=== PATIENT | male | born 1950 | race Caucasian/White ===

== ENCOUNTER 2023-10-05 17:13 | Inpatient (IN) | payer OTHER ==
[2023-10-05] MEDS ORDERED: SODIUM CHLORIDE 0.9% 500 ML INFUS.BAG IV ONE ×2 (17:24→17:47)
[2023-10-05] MEDS ORDERED: PIPERACILLIN/TAZOB 4.5 GM 4.5 GM in DEXTROSE 5%-WATER 100 ML IVPB ONE (17:24)
[2023-10-05] MEDS ORDERED: VANCOMYCIN 1 GRAM (PRE-DOCKED) 1,000 MG/250 ML BAG IVPB ONE ×2 (17:25→19:15)
[2023-10-05] MEDS ORDERED: ACETAMINOPHEN 1000 MG/100 ML BAG IVPB ONE (17:36)
[2023-10-05 18:28] LABS: BASO % 0.5 % (0-2.0); EOS % 0.3 % (0-4.5); HEMATOCRIT 36.7 % (35.4-49); HEMOGLOBIN 11.7 GM/dL (11.7-16.9); LYMPH % 2.2 % (8-40); MCH 31.5 pg (25.7-33.7); MEAN CELL VOLUME 98.4 fl (80-96); MONO % 8.2 % (3.8-10.2); NEUT % 88.8 % (42.8-82.8); PLATELET COUNT 545 10^3/uL (134-434); RBC 3.72 M/mm3 (4.00-5.60); WHITE BLOOD COUNT 11.6 K/mm3 (4.0-10.0)
[2023-10-05] MEDS ORDERED: PIPERACILLIN/TAZOB 4.5 GM 4.5 GM/100 ML BAG IVPB ONE (18:32)
[2023-10-05] MEDS ORDERED: ACETAMINOPHEN INJECTION 100 ML IVPB ONE (18:32)
[2023-10-05 18:36] LABS: INR 1.34 (0.83-1.09); PROTHROMBIN TIME (PATIENT) 15.5 SEC (9.7-13.0)
[2023-10-05 18:50] LABS: POTASSIUM 5.9 mmol/L (3.5-5.1)
[2023-10-05 18:52] LABS: BLOOD UREA NITROGEN 33.1 mg/dL (7-18); MAGNESIUM 2.1 mg/dL (1.8-2.4)
[2023-10-05 18:53] LABS: CALCIUM 8.4 mg/dL (8.5-10.1)
[2023-10-05 18:56] LABS: ACTIVATED PTT 25.8 SECONDS (25.2-36.5)
[2023-10-05 18:57] LABS: BILIRUBIN,TOTAL 0.3 mg/dL (0.2-1)
[2023-10-05 19:00] LABS: N-TERMINAL BNP 892.4 pg/ml (5-125)
[2023-10-05 19:01] LABS: VENOUS O2 SATURATION 51.9 % (70-80); VENOUS PCO2 38.8 mmHg (38-52); VENOUS PH 7.4 (7.310-7.410)
[2023-10-05] MEDS ORDERED: CALCIUM GLUCONATE 10% - 1,000 MG/10 ML VIAL IVPB ONE (19:03)
[2023-10-05] MEDS ORDERED: CALCIUM GLUCONATE 10% - 1,000 MG/10 ML VIAL ONE (20:14)
[2023-10-05 21:10] LABS: EPI CELLS 3 /uL (0-25.1); HYALINE CASTS 1 /uL (0-3.1); URINE APPEARANCE TURBID; URINE BACTERIA 3699 /uL (0-1359); URINE BILIRUBIN NEGATIVE (NEGATIVE); URINE COLOR YELLOW; URINE GLUCOSE (UA) NEGATIVE (NEGATIVE); URINE KETONE NEGATIVE (NEGATIVE); URINE LEUK ESTERASE 3+ (NEGATIVE); URINE NITRITE NEGATIVE (NEGATIVE); URINE PROTEIN 2+ (NEGATIVE); URINE UROBILINOGEN 0.2 mg/dL (0.2-1.0); URINE WBC 6583 /uL (0-25.8)
[2023-10-05 21:34] LABS: URINE RBC 104.2 /uL (0-23.9)
[2023-10-05] MEDS ORDERED: HEPARIN NA (PORCINE) 5,000 UNITS/ML 1ML VIAL SQ SCH (22:30)
[2023-10-05] MEDS ORDERED: HEPARIN NA (PORCINE) 5,000 UNITS/ML 1ML VIAL ONE (22:44)
[2023-10-05] MEDS ORDERED: ALPRAZolam 0.25 MG TABLET GT PRN (23:04)
[2023-10-05] MEDS ORDERED: SODIUM ZIRCONIUM CYCLOSILICATE (LOKELMA) 5 GM PACKET PO ONE (23:12)
[2023-10-05] MEDS ORDERED: SODIUM ZIRCONIUM CYCLOSILICATE (LOKELMA) 10 GM PACKET ONE (23:27)
[2023-10-06] MEDS ORDERED: PIPERACILLIN/TAZOB 3.375 GM 3.375 GM/50 ML BAG IVPB ONE ×2 (01:22→09:17)
[2023-10-06] MEDS: PIPERACILLIN/TAZOB 3.375 GM 3.375 GM in DEXTROSE 5%-WATER - 50 ML IVPB SCH ×3 (01:22→18:24)
[2023-10-06] MEDS ORDERED: PIPERACILLIN/TAZOB 3.375 GM 3.375 GM in DEXTROSE 5%-WATER - 50 ML IVPB SCH (02:00)
[2023-10-06 03:30] LABS: POTASSIUM 4.2 mmol/L (3.5-5.1)
[2023-10-06 03:31] LABS: BLOOD UREA NITROGEN 27.3 mg/dL (7-18); CALCIUM 8.2 mg/dL (8.5-10.1)
[2023-10-06 03:35] LABS: CREATININE 0.7 mg/dL (0.55-1.3)
[2023-10-06] MEDS ORDERED: ALBUTEROL SO4 2.5/IPRATROPIUM 0.5 INH SOL 3 ML VIAL.NEB. NEB ONE (08:51)
[2023-10-06] MEDS: ALBUTEROL SO4 2.5/IPRATROPIUM 0.5 INH SOL 3 ML VIAL.NEB. NEB SCH ×4 (08:52→20:45)
[2023-10-06 08:55] LABS: HEMOGLOBIN 9.8 GM/dL (11.7-16.9); MCH 31.9 pg (25.7-33.7); MCHC 32.7 g/dl (32.0-35.9); MEAN CELL VOLUME 97.8 fl (80-96); MEAN PLT VOLUME 8.7 fl (7.5-11.1); PLATELET COUNT 462 10^3/uL (134-434); RBC 3.07 M/mm3 (4.00-5.60); WHITE BLOOD COUNT 14.3 K/mm3 (4.0-10.0)
[2023-10-06] MEDS ORDERED: HEPARIN NA (PORCINE) 5,000 UNITS/ML 1ML VIAL ONE (08:55)
[2023-10-06 09:08] LABS: POTASSIUM 4.3 mmol/L (3.5-5.1)
[2023-10-06 09:14] LABS: BLOOD UREA NITROGEN 26.8 mg/dL (7-18); CALCIUM 8.2 mg/dL (8.5-10.1)
[2023-10-06 09:15] LABS: ALBUMIN 1.8 g/dl (3.4-5.0)
[2023-10-06] MEDS: ZINC SULFATE 220 MG CAPSULE (FP) GT SCH (09:15)
[2023-10-06] MEDS: CYANOCOBALAMIN 1,000 MCG TABLET (FP) GT SCH (09:15)
[2023-10-06] MEDS: HEPARIN NA (PORCINE) 5,000 UNITS/ML 1ML VIAL SQ SCH ×2 (09:15→21:28)
[2023-10-06] MEDS: ASCORBIC ACID 500 MG TABLET (FP) GT SCH ×2 (09:15→21:30)
[2023-10-06] MEDS: FAMOTIDINE 20 MG/2.5 ML ORAL LIQUID GT SCH (09:15)
[2023-10-06] MEDS: THIAMINE HCL 100 MG TABLET (FP) NGT SCH (09:15)
[2023-10-06] MEDS: ACETAMINOPHEN 650 MG/20.3 ML ORAL SOLUTION (CUPS) GT SCH ×3 (09:15→18:23)
[2023-10-06] MEDS: FOLIC ACID 1 MG TABLET (FP) GT SCH (09:16)
[2023-10-06] MEDS: POLYETHYLENE GLYCOL (HEALTHYLAX) 3350 17 GM PACKET PO SCH (09:16)
[2023-10-06] MEDS: ASPIRIN 81 MG CHEWABLE TABLETS GT SCH (09:16)
[2023-10-06 09:18] LABS: BILIRUBIN,TOTAL 0.5 mg/dL (0.2-1); CREATININE 0.7 mg/dL (0.55-1.3); PHOSPHOROUS 3.3 mg/dL (2.5-4.9)
[2023-10-06] MEDS ORDERED: POTASSIUM CHLORIDE GT SCH (10:00)
[2023-10-06] MEDS ORDERED: ENOXAPARIN NA (PORCINE) 30 MG/0.3 ML DISP.SYRIN SQ SCH (10:00)
[2023-10-06] MEDS ORDERED: [UNRECOGNIZED DRUG - OTHER] GT SCH (10:00)
[2023-10-06] MEDS: BUDESONIDE 0.25 MG/2ML INH SUSP VIAL NEB SCH ×2 (17:22→20:45)
[2023-10-06] MEDS: SENNOSIDES 8.6MG TABLET (FP) PO SCH (21:29)
[2023-10-06] MEDS: QUEtiapine FUMARATE 25 MG TABLET GT SCH (21:30)
[2023-10-07] MEDS ORDERED: PIPERACILLIN/TAZOB 3.375 GM 3.375 GM in DEXTROSE 5%-WATER - 50 ML IVPB ONE (03:00)
[2023-10-07] MEDS: SODIUM CHLORIDE 1,000 ML IV SCH ×2 (06:28→19:41)
[2023-10-07 07:20] LABS: HEMATOCRIT 30.8 % (35.4-49); HEMOGLOBIN 10.2 GM/dL (11.7-16.9); MCH 32.1 pg (25.7-33.7); MCHC 33.2 g/dl (32.0-35.9); MEAN CELL VOLUME 96.7 fl (80-96); MEAN PLT VOLUME 7.9 fl (7.5-11.1); PLATELET COUNT 507 10^3/uL (134-434); RBC 3.18 M/mm3 (4.00-5.60); RDW 16.6 % (11.9-15.9); WHITE BLOOD COUNT 17.8 K/mm3 (4.0-10.0)
[2023-10-07] MEDS: ACETAMINOPHEN 650 MG/20.3 ML ORAL SOLUTION (CUPS) GT SCH ×5 (07:36→23:39)
[2023-10-07] MEDS: ALBUTEROL SO4 2.5/IPRATROPIUM 0.5 INH SOL 3 ML VIAL.NEB. NEB SCH ×4 (07:45→21:11)
[2023-10-07] MEDS: BUDESONIDE 0.25 MG/2ML INH SUSP VIAL NEB SCH ×2 (08:08→21:18)
[2023-10-07 08:39] LABS: ALBUMIN 1.7 g/dl (3.4-5.0); BILIRUBIN,TOTAL 0.2 mg/dL (0.2-1); BLOOD UREA NITROGEN 21.2 mg/dL (7-18); CALCIUM 8.4 mg/dL (8.5-10.1); CREATININE 0.6 mg/dL (0.55-1.3); POTASSIUM 3.3 mmol/L (3.5-5.1); TOT PROT 5.7 g/dl (6.4-8.2)
[2023-10-07] MEDS: THIAMINE HCL 100 MG TABLET (FP) NGT SCH (09:51)
[2023-10-07] MEDS: ASPIRIN 81 MG CHEWABLE TABLETS GT SCH (09:51)
[2023-10-07] MEDS: FAMOTIDINE 20 MG/2.5 ML ORAL LIQUID GT SCH (09:51)
[2023-10-07] MEDS: FOLIC ACID 1 MG TABLET (FP) GT SCH (09:51)
[2023-10-07] MEDS: HEPARIN NA (PORCINE) 5,000 UNITS/ML 1ML VIAL SQ SCH ×2 (09:51→23:27)
[2023-10-07] MEDS: ASCORBIC ACID 500 MG TABLET (FP) GT SCH ×2 (09:52→23:27)
[2023-10-07] MEDS: ZINC SULFATE 220 MG CAPSULE (FP) GT SCH (09:52)
[2023-10-07] MEDS: POLYETHYLENE GLYCOL (HEALTHYLAX) 3350 17 GM PACKET PO SCH (09:52)
[2023-10-07] MEDS: CYANOCOBALAMIN 1,000 MCG TABLET (FP) GT SCH (09:52)
[2023-10-07 10:04] LABS: ANISOCYTOSIS 0; HELMET CELLS 0; HOWELL-JOLLY BODIES 0; MACROCYTOSIS 0; OVALOCYTE 0; ROULEAU 0; SICKELED CELLS 0; TARGET CELLS 0; TEAR DROP CELLS 0; TOXIC GRANULATION 0
[2023-10-07] MEDS: PIPERACILLIN/TAZOB 3.375 GM 3.375 GM in DEXTROSE 5%-WATER - 50 ML IVPB SCH (19:41)
[2023-10-07] MEDS: QUEtiapine FUMARATE 25 MG TABLET GT SCH (23:27)
[2023-10-07] MEDS: SENNOSIDES 8.6MG TABLET (FP) PO SCH (23:27)
[2023-10-08] MEDS: PIPERACILLIN/TAZOB 3.375 GM 3.375 GM in DEXTROSE 5%-WATER - 50 ML IVPB SCH ×3 (02:26→18:06)
[2023-10-08 07:44] LABS: BASO % 0.2 % (0-2.0); EOS % 1.4 % (0-4.5); HEMATOCRIT 30.3 % (35.4-49); HEMOGLOBIN 9.9 GM/dL (11.7-16.9); LYMPH % 4.3 % (8-40); MCH 31.3 pg (25.7-33.7); MCHC 32.7 g/dl (32.0-35.9); MEAN CELL VOLUME 95.8 fl (80-96); MEAN PLT VOLUME 7.9 fl (7.5-11.1); MONO % 4.9 % (3.8-10.2); NEUT % 89.2 % (42.8-82.8); PLATELET COUNT 465 10^3/uL (134-434); RBC 3.16 M/mm3 (4.00-5.60); WHITE BLOOD COUNT 13.5 K/mm3 (4.0-10.0)
[2023-10-08] MEDS: BUDESONIDE 0.25 MG/2ML INH SUSP VIAL NEB SCH ×2 (08:20→20:05)
[2023-10-08] MEDS: ALBUTEROL SO4 2.5/IPRATROPIUM 0.5 INH SOL 3 ML VIAL.NEB. NEB SCH ×4 (08:25→20:05)
[2023-10-08] MEDS: POLYETHYLENE GLYCOL (HEALTHYLAX) 3350 17 GM PACKET PO SCH (10:17)
[2023-10-08] MEDS: HEPARIN NA (PORCINE) 5,000 UNITS/ML 1ML VIAL SQ SCH ×2 (10:23→21:41)
[2023-10-08] MEDS: ACETAMINOPHEN 650 MG/20.3 ML ORAL SOLUTION (CUPS) GT SCH ×4 (10:23→21:43)
[2023-10-08] MEDS: AMINO ACIDS/PROTEIN HYDROLYS 30 ML LIQUID.PKT PEG SCH (10:23)
[2023-10-08 10:24] LABS: ALBUMIN 1.4 g/dl (3.4-5.0); BILIRUBIN,TOTAL 0.2 mg/dL (0.2-1); BLOOD UREA NITROGEN 13.4 mg/dL (7-18); CALCIUM 7.8 mg/dL (8.5-10.1); CREATININE 0.5 mg/dL (0.55-1.3); POTASSIUM 3.3 mmol/L (3.5-5.1)
[2023-10-08] MEDS: FOLIC ACID 1 MG TABLET (FP) GT SCH (10:24)
[2023-10-08] MEDS: THIAMINE HCL 100 MG TABLET (FP) NGT SCH (10:24)
[2023-10-08] MEDS: ZINC SULFATE 220 MG CAPSULE (FP) GT SCH (10:24)
[2023-10-08] MEDS: CYANOCOBALAMIN 1,000 MCG TABLET (FP) GT SCH (10:24)
[2023-10-08] MEDS: ASCORBIC ACID 500 MG TABLET (FP) GT SCH ×2 (10:24→21:42)
[2023-10-08] MEDS: ASPIRIN 81 MG CHEWABLE TABLETS GT SCH (10:24)
[2023-10-08] MEDS: FAMOTIDINE 20 MG/2.5 ML ORAL LIQUID GT SCH (10:30)
[2023-10-08] MEDS: KCL 10 MEQ IVPB 10 MEQ/100 ML INFUS.BAG IVPB SCH ×3 (15:36→18:06)
[2023-10-08] MEDS: SODIUM CHLORIDE 1,000 ML IV SCH (15:37)
[2023-10-08] MEDS: ATORVASTATIN CA 40 MG TABLET (FP) GT SCH (21:41)
[2023-10-08] MEDS: QUEtiapine FUMARATE 25 MG TABLET GT SCH (21:42)
[2023-10-08] MEDS: SENNOSIDES 8.6MG TABLET (FP) PO SCH (22:21)
[2023-10-09] MEDS: PIPERACILLIN/TAZOB 3.375 GM 3.375 GM in DEXTROSE 5%-WATER - 50 ML IVPB SCH ×3 (01:46→18:13)
[2023-10-09 07:24] LABS: HEMATOCRIT 32.5 % (35.4-49); HEMOGLOBIN 10.7 GM/dL (11.7-16.9); MCH 32.1 pg (25.7-33.7); MEAN CELL VOLUME 97.3 fl (80-96); MEAN PLT VOLUME 8.2 fl (7.5-11.1); PLATELET COUNT 531 10^3/uL (134-434); RBC 3.34 M/mm3 (4.00-5.60); RDW 16.9 % (11.9-15.9); WHITE BLOOD COUNT 11.9 K/mm3 (4.0-10.0)
[2023-10-09 07:35] LABS: POTASSIUM 3.5 mmol/L (3.5-5.1)
[2023-10-09 07:38] LABS: CALCIUM 7.8 mg/dL (8.5-10.1)
[2023-10-09 07:39] LABS: ALBUMIN 1.5 g/dl (3.4-5.0); BLOOD UREA NITROGEN 11.6 mg/dL (7-18); MAGNESIUM 1.8 mg/dL (1.8-2.4)
[2023-10-09 07:42] LABS: CREATININE 0.5 mg/dL (0.55-1.3); PHOSPHOROUS 2.4 mg/dL (2.5-4.9)
[2023-10-09 07:43] LABS: TOT PROT 5.3 g/dl (6.4-8.2)
[2023-10-09 07:55] LABS: BILIRUBIN,TOTAL 0.2 mg/dL (0.2-1)
[2023-10-09] MEDS: AMINO ACIDS/PROTEIN HYDROLYS 30 ML LIQUID.PKT PEG SCH (08:58)
[2023-10-09] MEDS: ALBUTEROL SO4 2.5/IPRATROPIUM 0.5 INH SOL 3 ML VIAL.NEB. NEB SCH ×2 (09:00→12:58)
[2023-10-09] MEDS: BUDESONIDE 0.25 MG/2ML INH SUSP VIAL NEB SCH ×2 (09:00→21:28)
[2023-10-09] MEDS: ACETAMINOPHEN 650 MG/20.3 ML ORAL SOLUTION (CUPS) GT SCH ×4 (10:17→22:08)
[2023-10-09] MEDS: POLYETHYLENE GLYCOL (HEALTHYLAX) 3350 17 GM PACKET PO SCH (10:20)
[2023-10-09] MEDS: CYANOCOBALAMIN 1,000 MCG TABLET (FP) GT SCH (10:21)
[2023-10-09] MEDS: ZINC SULFATE 220 MG CAPSULE (FP) GT SCH (10:21)
[2023-10-09] MEDS: THIAMINE HCL 100 MG TABLET (FP) NGT SCH (10:21)
[2023-10-09] MEDS: ASCORBIC ACID 500 MG TABLET (FP) GT SCH ×2 (10:21→22:09)
[2023-10-09] MEDS: ASPIRIN 81 MG CHEWABLE TABLETS GT SCH (10:21)
[2023-10-09] MEDS: HEPARIN NA (PORCINE) 5,000 UNITS/ML 1ML VIAL SQ SCH ×2 (10:21→22:09)
[2023-10-09] MEDS: FOLIC ACID 1 MG TABLET (FP) GT SCH (10:21)
[2023-10-09] MEDS: FAMOTIDINE 20 MG/2.5 ML ORAL LIQUID GT SCH (10:39)
[2023-10-09] MEDS: METOPROLOL TARTRATE 25 MG TABLET (FP) PEG SCH ×2 (14:59→22:09)
[2023-10-09] MEDS: SODIUM CHLORIDE 1,000 ML IV SCH (15:18)
[2023-10-09] MEDS: LEVALBUTEROL HCL 0.63 MG/3 ML VIAL.NEB. IH SCH ×2 (16:19→21:29)
[2023-10-09] MEDS: ATORVASTATIN CA 40 MG TABLET (FP) GT SCH (22:09)
[2023-10-09] MEDS: SENNOSIDES 8.6MG TABLET (FP) PO SCH (23:40)
[2023-10-09] MEDS: QUEtiapine FUMARATE 25 MG TABLET GT SCH (23:41)
[2023-10-10] MEDS: PIPERACILLIN/TAZOB 3.375 GM 3.375 GM in DEXTROSE 5%-WATER - 50 ML IVPB SCH ×3 (01:58→18:00)
[2023-10-10] MEDS ORDERED: ACETAMINOPHEN 1000 MG/100 ML BAG IVPB ONE (02:11)
[2023-10-10] MEDS: BUDESONIDE 0.25 MG/2ML INH SUSP VIAL NEB SCH ×2 (07:35→20:05)
[2023-10-10] MEDS: AMINO ACIDS/PROTEIN HYDROLYS 30 ML LIQUID.PKT PEG SCH (07:44)
[2023-10-10] MEDS: LEVALBUTEROL HCL 0.63 MG/3 ML VIAL.NEB. IH SCH ×3 (09:12→20:05)
[2023-10-10] MEDS ORDERED: MEROPENEM 1 GM in DEXTROSE 5%-WATER 100 ML IVPB ONE (09:36)
[2023-10-10] MEDS: FOLIC ACID 1 MG TABLET (FP) GT SCH (10:06)
[2023-10-10] MEDS: ZINC SULFATE 220 MG CAPSULE (FP) GT SCH (10:06)
[2023-10-10] MEDS: ASPIRIN 81 MG CHEWABLE TABLETS GT SCH (10:06)
[2023-10-10] MEDS: THIAMINE HCL 100 MG TABLET (FP) NGT SCH (10:06)
[2023-10-10] MEDS: CYANOCOBALAMIN 1,000 MCG TABLET (FP) GT SCH (10:07)
[2023-10-10] MEDS: ASCORBIC ACID 500 MG TABLET (FP) GT SCH ×2 (10:14→23:54)
[2023-10-10] MEDS: ACETAMINOPHEN 650 MG/20.3 ML ORAL SOLUTION (CUPS) GT SCH ×4 (10:15→23:57)
[2023-10-10] MEDS: HEPARIN NA (PORCINE) 5,000 UNITS/ML 1ML VIAL SQ SCH ×2 (10:18→23:54)
[2023-10-10] MEDS: BANATROL PLUS POWDER PACKET PEG SCH ×3 (10:31→23:56)
[2023-10-10] MEDS: FAMOTIDINE 20 MG/2.5 ML ORAL LIQUID GT SCH (10:48)
[2023-10-10] MEDS: METOPROLOL TARTRATE 25 MG TABLET (FP) PEG SCH ×2 (11:20→23:54)
[2023-10-10 11:59] LABS: BASO % 1.2 % (0-2.0); EOS % 0.9 % (0-4.5); HEMOGLOBIN 10.2 GM/dL (11.7-16.9); LYMPH % 3.4 % (8-40); MCH 32.9 pg (25.7-33.7); MEAN CELL VOLUME 96.9 fl (80-96); MEAN PLT VOLUME 8.2 fl (7.5-11.1); MONO % 5.2 % (3.8-10.2); NEUT % 89.3 % (42.8-82.8); PLATELET COUNT 527 10^3/uL (134-434); RBC 3.09 M/mm3 (4.00-5.60); RDW 16.9 % (11.9-15.9); WHITE BLOOD COUNT 10.3 K/mm3 (4.0-10.0)
[2023-10-10 12:28] LABS: POTASSIUM 3.2 mmol/L (3.5-5.1)
[2023-10-10 12:30] LABS: ALBUMIN 1.4 g/dl (3.4-5.0); CALCIUM 7.6 mg/dL (8.5-10.1)
[2023-10-10] MEDS: VANCOMYCIN ORAL SOLUTION 125 MG/2.5 ML PEG SCH ×2 (12:30→18:01)
[2023-10-10 12:31] LABS: BLOOD UREA NITROGEN 17.2 mg/dL (7-18); MAGNESIUM 1.8 mg/dL (1.8-2.4)
[2023-10-10 12:33] LABS: CREATININE 0.6 mg/dL (0.55-1.3)
[2023-10-10 12:34] LABS: PHOSPHOROUS 2.6 mg/dL (2.5-4.9)
[2023-10-10 12:35] LABS: BILIRUBIN,TOTAL 0.2 mg/dL (0.2-1)
[2023-10-10] MEDS: D5-1/2NS+10 MEQ KCL - 10 MEQ/1,000 ML INFUS.BAG IV SCH (18:41)
[2023-10-10] MEDS: ATORVASTATIN CA 40 MG TABLET (FP) GT SCH (23:55)
[2023-10-10] MEDS: QUEtiapine FUMARATE 25 MG TABLET GT SCH (23:55)
[2023-10-11] MEDS: PIPERACILLIN/TAZOB 3.375 GM 3.375 GM in DEXTROSE 5%-WATER - 50 ML IVPB SCH ×3 (01:02→17:49)
[2023-10-11] MEDS: VANCOMYCIN ORAL SOLUTION 125 MG/2.5 ML PEG SCH ×4 (01:02→17:49)
[2023-10-11] MEDS: BANATROL PLUS POWDER PACKET PEG SCH ×3 (06:48→23:11)
[2023-10-11 07:06] LABS: HEMATOCRIT 31.6 % (35.4-49); HEMOGLOBIN 10.4 GM/dL (11.7-16.9); MCH 31.3 pg (25.7-33.7); MCHC 32.9 g/dl (32.0-35.9); MEAN CELL VOLUME 95.1 fl (80-96); MEAN PLT VOLUME 7.8 fl (7.5-11.1); PLATELET COUNT 591 10^3/uL (134-434); RBC 3.32 M/mm3 (4.00-5.60); RDW 17.1 % (11.9-15.9); WHITE BLOOD COUNT 12.3 K/mm3 (4.0-10.0)
[2023-10-11 07:24] LABS: POTASSIUM 3.6 mmol/L (3.5-5.1)
[2023-10-11 07:27] LABS: ALBUMIN 1.4 g/dl (3.4-5.0); BLOOD UREA NITROGEN 14.4 mg/dL (7-18); CALCIUM 7.9 mg/dL (8.5-10.1); MAGNESIUM 1.9 mg/dL (1.8-2.4)
[2023-10-11 07:31] LABS: CREATININE 0.6 mg/dL (0.55-1.3)
[2023-10-11 07:32] LABS: TOT PROT 5.3 g/dl (6.4-8.2)
[2023-10-11 07:35] LABS: BILIRUBIN,TOTAL 0.3 mg/dL (0.2-1)
[2023-10-11] MEDS: LEVALBUTEROL HCL 0.63 MG/3 ML VIAL.NEB. IH SCH ×3 (08:20→21:00)
[2023-10-11] MEDS: ACETAMINOPHEN 650 MG/20.3 ML ORAL SOLUTION (CUPS) GT SCH ×4 (09:29→23:10)
[2023-10-11] MEDS: AMINO ACIDS/PROTEIN HYDROLYS 30 ML LIQUID.PKT PEG SCH (09:30)
[2023-10-11] MEDS: FAMOTIDINE 20 MG/2.5 ML ORAL LIQUID GT SCH (09:30)
[2023-10-11] MEDS: CYANOCOBALAMIN 1,000 MCG TABLET (FP) GT SCH (09:30)
[2023-10-11] MEDS: THIAMINE HCL 100 MG TABLET (FP) NGT SCH (09:30)
[2023-10-11] MEDS: ZINC SULFATE 220 MG CAPSULE (FP) GT SCH (09:31)
[2023-10-11] MEDS: ASPIRIN 81 MG CHEWABLE TABLETS GT SCH (09:31)
[2023-10-11] MEDS: FOLIC ACID 1 MG TABLET (FP) GT SCH (09:31)
[2023-10-11] MEDS: HEPARIN NA (PORCINE) 5,000 UNITS/ML 1ML VIAL SQ SCH ×3 (09:31→23:11)
[2023-10-11] MEDS: ASCORBIC ACID 500 MG TABLET (FP) GT SCH ×2 (09:31→23:11)
[2023-10-11] MEDS: METOPROLOL TARTRATE 25 MG TABLET (FP) PEG SCH ×2 (09:31→10:53)
[2023-10-11 10:19] LABS: ANISOCYTOSIS 0; HELMET CELLS 0; HOWELL-JOLLY BODIES 0; MACROCYTOSIS 0; OVALOCYTE 0; ROULEAU 0; SICKELED CELLS 0; TARGET CELLS 0; TEAR DROP CELLS 0; TOXIC GRANULATION 0
[2023-10-11] MEDS ORDERED: SODIUM CHLORIDE 250 ML IV STA (11:55)
[2023-10-11] MEDS: BUDESONIDE 0.25 MG/2ML INH SUSP VIAL NEB SCH ×2 (13:00→21:00)
[2023-10-11] MEDS: D5-1/2NS+10 MEQ KCL - 10 MEQ/1,000 ML INFUS.BAG IV SCH ×2 (14:55→17:46)
[2023-10-11] MEDS ORDERED: BUDESONIDE 0.5 MG/2 ML INH SUSP VIAL NEB ONE (20:49)
[2023-10-11] MEDS: ATORVASTATIN CA 40 MG TABLET (FP) GT SCH (23:11)
[2023-10-11] MEDS: QUEtiapine FUMARATE 25 MG TABLET GT SCH (23:12)
[2023-10-12] MEDS: VANCOMYCIN ORAL SOLUTION 125 MG/2.5 ML PEG SCH ×5 (00:45→23:58)
[2023-10-12] MEDS: PIPERACILLIN/TAZOB 3.375 GM 3.375 GM in DEXTROSE 5%-WATER - 50 ML IVPB SCH (02:09)
[2023-10-12] MEDS: BANATROL PLUS POWDER PACKET PEG SCH ×3 (06:34→22:21)
[2023-10-12] MEDS: HEPARIN NA (PORCINE) 5,000 UNITS/ML 1ML VIAL SQ SCH ×3 (06:34→22:19)
[2023-10-12] MEDS: LEVALBUTEROL HCL 0.63 MG/3 ML VIAL.NEB. IH SCH ×3 (07:51→20:41)
[2023-10-12] MEDS: BUDESONIDE 0.25 MG/2ML INH SUSP VIAL NEB SCH ×2 (08:29→20:41)
[2023-10-12 08:47] LABS: HEMATOCRIT 28.5 % (35.4-49); HEMOGLOBIN 9.5 GM/dL (11.7-16.9); MCH 32.3 pg (25.7-33.7); MCHC 33.4 g/dl (32.0-35.9); MEAN CELL VOLUME 96.7 fl (80-96); MEAN PLT VOLUME 8.2 fl (7.5-11.1); PLATELET COUNT 549 10^3/uL (134-434); RBC 2.95 M/mm3 (4.00-5.60); RDW 17.1 % (11.9-15.9); WHITE BLOOD COUNT 16.7 K/mm3 (4.0-10.0)
[2023-10-12] MEDS ORDERED: PIPERACILLIN/TAZOB 3.375 GM 3.375 GM in DEXTROSE 5%-WATER - 50 ML IVPB SCH (10:00)
[2023-10-12 11:38] LABS: POTASSIUM 3.3 mmol/L (3.5-5.1)
[2023-10-12] MEDS ORDERED: COLLAGENASE CLOSTRIDIUM HIST. 30 GRAMS TUBE TP SCH (12:00)
[2023-10-12] MEDS: CYANOCOBALAMIN 1,000 MCG TABLET (FP) GT SCH (12:18)
[2023-10-12] MEDS: THIAMINE HCL 100 MG TABLET (FP) NGT SCH (12:18)
[2023-10-12] MEDS: ASCORBIC ACID 500 MG TABLET (FP) GT SCH ×2 (12:18→22:19)
[2023-10-12] MEDS: ACETAMINOPHEN 650 MG/20.3 ML ORAL SOLUTION (CUPS) GT SCH ×4 (12:19→22:20)
[2023-10-12] MEDS: FOLIC ACID 1 MG TABLET (FP) GT SCH (12:19)
[2023-10-12] MEDS: ZINC SULFATE 220 MG CAPSULE (FP) GT SCH (12:19)
[2023-10-12] MEDS: ASPIRIN 81 MG CHEWABLE TABLETS GT SCH (12:19)
[2023-10-12 12:33] LABS: CALCIUM 7.9 mg/dL (8.5-10.1)
[2023-10-12 12:34] LABS: ALBUMIN 1.4 g/dl (3.4-5.0)
[2023-10-12 12:37] LABS: CREATININE 0.5 mg/dL (0.55-1.3); PHOSPHOROUS 2.6 mg/dL (2.5-4.9)
[2023-10-12 12:38] LABS: BILIRUBIN,TOTAL 0.6 mg/dL (0.2-1); TOT PROT 5.2 g/dl (6.4-8.2)
[2023-10-12] MEDS ORDERED: POTASSIUM CHLORIDE ORAL LIQUID 20 MEQ/15 ML PEG ONE (13:45)
[2023-10-12] MEDS: D5-1/2NS+10 MEQ KCL - 10 MEQ/1,000 ML INFUS.BAG IV SCH ×2 (15:33→18:42)
[2023-10-12] MEDS: NYSTATIN POWDER 100,000 UNITS/GM - 15 GM TOPICAL POWDER TP SCH ×2 (15:34→22:17)
[2023-10-12] MEDS: AMINO ACIDS/PROTEIN HYDROLYS 30 ML LIQUID.PKT PEG SCH (16:27)
[2023-10-12] MEDS: FAMOTIDINE 20 MG/2.5 ML ORAL LIQUID GT SCH (17:42)
[2023-10-12] MEDS: MEROPENEM 1 GM in DEXTROSE 5%-WATER 100 ML IVPB SCH (18:43)
[2023-10-12] MEDS: ATORVASTATIN CA 40 MG TABLET (FP) GT SCH (22:19)
[2023-10-12] MEDS: QUEtiapine FUMARATE 25 MG TABLET GT SCH (22:20)
[2023-10-13] MEDS: MEROPENEM 1 GM in DEXTROSE 5%-WATER 100 ML IVPB SCH ×3 (01:42→18:37)
[2023-10-13] MEDS: BANATROL PLUS POWDER PACKET PEG SCH ×3 (05:32→22:31)
[2023-10-13] MEDS: HEPARIN NA (PORCINE) 5,000 UNITS/ML 1ML VIAL SQ SCH ×3 (05:32→22:31)
[2023-10-13] MEDS: NYSTATIN POWDER 100,000 UNITS/GM - 15 GM TOPICAL POWDER TP SCH ×3 (05:32→22:33)
[2023-10-13] MEDS: VANCOMYCIN ORAL SOLUTION 125 MG/2.5 ML PEG SCH ×3 (05:33→18:38)
[2023-10-13] MEDS: BUDESONIDE 0.25 MG/2ML INH SUSP VIAL NEB SCH ×2 (07:30→20:00)
[2023-10-13] MEDS: LEVALBUTEROL HCL 0.63 MG/3 ML VIAL.NEB. IH SCH ×3 (07:30→20:00)
[2023-10-13 08:09] LABS: HEMATOCRIT 28.3 % (35.4-49); HEMOGLOBIN 9.3 GM/dL (11.7-16.9); MCHC 32.9 g/dl (32.0-35.9); MEAN CELL VOLUME 97.2 fl (80-96); MEAN PLT VOLUME 8.2 fl (7.5-11.1); PLATELET COUNT 603 10^3/uL (134-434); RBC 2.91 M/mm3 (4.00-5.60); RDW 17.2 % (11.9-15.9); WHITE BLOOD COUNT 12.7 K/mm3 (4.0-10.0)
[2023-10-13 08:25] LABS: CHLORIDE 105 mmol/L (98-107); POTASSIUM 3.3 mmol/L (3.5-5.1); SODIUM 137 mmol/L (136-145)
[2023-10-13 08:33] LABS: CALCIUM 7.8 mg/dL (8.5-10.1)
[2023-10-13 08:34] LABS: ALBUMIN 1.3 g/dl (3.4-5.0); ANION GAP 6 mmol/L (4-13); BLOOD UREA NITROGEN 9.1 mg/dL (7-18); CO2 25 mmol/L (21-32); GLUCOSE,RANDOM 89 mg/dL (74-106)
[2023-10-13 08:36] LABS: CREATININE 0.4 mg/dL (0.55-1.3); SGPT/ALT 21 U/L (13-61)
[2023-10-13 08:37] LABS: PHOSPHOROUS 2.5 mg/dL (2.5-4.9); SGOT/AST 20 U/L (15-37)
[2023-10-13 08:38] LABS: BILIRUBIN,TOTAL < 0.1 mg/dL (0.2-1)
[2023-10-13 08:39] LABS: ALK PHOS 76 U/L (45-117)
[2023-10-13] MEDS: AMINO ACIDS/PROTEIN HYDROLYS 30 ML LIQUID.PKT PEG SCH (08:56)
[2023-10-13] MEDS: ACETAMINOPHEN 650 MG/20.3 ML ORAL SOLUTION (CUPS) GT SCH ×4 (10:05→22:30)
[2023-10-13] MEDS: ASPIRIN 81 MG CHEWABLE TABLETS GT SCH (10:06)
[2023-10-13] MEDS: FAMOTIDINE 20 MG/2.5 ML ORAL LIQUID GT SCH (10:06)
[2023-10-13] MEDS: ASCORBIC ACID 500 MG TABLET (FP) GT SCH ×2 (10:07→22:31)
[2023-10-13] MEDS: THIAMINE HCL 100 MG TABLET (FP) NGT SCH (10:07)
[2023-10-13] MEDS: CYANOCOBALAMIN 1,000 MCG TABLET (FP) GT SCH (10:07)
[2023-10-13] MEDS: FOLIC ACID 1 MG TABLET (FP) GT SCH (10:07)
[2023-10-13] MEDS: ZINC SULFATE 220 MG CAPSULE (FP) GT SCH (10:07)
[2023-10-13 11:23] LABS: ANISOCYTOSIS 0; HELMET CELLS 0; HOWELL-JOLLY BODIES 0; MACROCYTOSIS 0; OVALOCYTE 0; ROULEAU 0; SICKELED CELLS 0; TARGET CELLS 0; TEAR DROP CELLS 0; TOXIC GRANULATION 0
[2023-10-13] MEDS: D5-1/2NS+10 MEQ KCL - 10 MEQ/1,000 ML INFUS.BAG IV SCH (12:49)
[2023-10-13 13:25] VITALS: BMI 15.0
[2023-10-13] MEDS ORDERED: POTASSIUM CHLORIDE ORAL LIQUID 20 MEQ/15 ML PO ONE ×2 (14:15→18:30)
[2023-10-13] MEDS: KCL 10 MEQ IVPB 10 MEQ/100 ML INFUS.BAG IVPB SCH ×2 (18:28→20:26)
[2023-10-13] MEDS: ATORVASTATIN CA 40 MG TABLET (FP) GT SCH (22:31)
[2023-10-13] MEDS: QUEtiapine FUMARATE 25 MG TABLET GT SCH (22:31)
[2023-10-14] MEDS: VANCOMYCIN ORAL SOLUTION 125 MG/2.5 ML PEG SCH ×4 (00:50→17:37)
[2023-10-14] MEDS: MEROPENEM 1 GM in DEXTROSE 5%-WATER 100 ML IVPB SCH ×3 (01:44→17:36)
[2023-10-14] MEDS: BANATROL PLUS POWDER PACKET PEG SCH ×3 (07:21→22:17)
[2023-10-14] MEDS: HEPARIN NA (PORCINE) 5,000 UNITS/ML 1ML VIAL SQ SCH ×3 (07:21→22:15)
[2023-10-14] MEDS: NYSTATIN POWDER 100,000 UNITS/GM - 15 GM TOPICAL POWDER TP SCH ×3 (07:22→22:17)
[2023-10-14 08:21] LABS: HEMATOCRIT 33.7 % (35.4-49); HEMOGLOBIN 11.1 GM/dL (11.7-16.9); MCH 31.5 pg (25.7-33.7); MCHC 32.9 g/dl (32.0-35.9); MEAN CELL VOLUME 95.7 fl (80-96); MEAN PLT VOLUME 8.1 fl (7.5-11.1); PLATELET COUNT 793 10^3/uL (134-434); RBC 3.52 M/mm3 (4.00-5.60); RDW 17.2 % (11.9-15.9); WHITE BLOOD COUNT 12.4 K/mm3 (4.0-10.0)
[2023-10-14 08:24] LABS: POTASSIUM 4.1 mmol/L (3.5-5.1)
[2023-10-14 08:28] LABS: CALCIUM 8.2 mg/dL (8.5-10.1)
[2023-10-14 08:29] LABS: ALBUMIN 1.5 g/dl (3.4-5.0); BLOOD UREA NITROGEN 8.9 mg/dL (7-18)
[2023-10-14 08:32] LABS: CREATININE 0.4 mg/dL (0.55-1.3)
[2023-10-14 08:33] LABS: BILIRUBIN,TOTAL 0.5 mg/dL (0.2-1); TOT PROT 5.4 g/dl (6.4-8.2)
[2023-10-14] MEDS: KCL 10 MEQ IVPB 10 MEQ/100 ML INFUS.BAG IVPB SCH (08:45)
[2023-10-14] MEDS: BUDESONIDE 0.25 MG/2ML INH SUSP VIAL NEB SCH ×2 (08:55→20:04)
[2023-10-14] MEDS: LEVALBUTEROL HCL 0.63 MG/3 ML VIAL.NEB. IH SCH ×3 (08:55→20:05)
[2023-10-14 09:30] LABS: ANISOCYTOSIS 0; HELMET CELLS 0; HOWELL-JOLLY BODIES 0; MACROCYTOSIS 0; OVALOCYTE 0; ROULEAU 0; SICKELED CELLS 0; TARGET CELLS 0; TEAR DROP CELLS 0; TOXIC GRANULATION 0
[2023-10-14] MEDS: ACETAMINOPHEN 650 MG/20.3 ML ORAL SOLUTION (CUPS) GT SCH ×4 (10:43→23:05)
[2023-10-14] MEDS: AMINO ACIDS/PROTEIN HYDROLYS 30 ML LIQUID.PKT PEG SCH (10:43)
[2023-10-14] MEDS: FAMOTIDINE 20 MG/2.5 ML ORAL LIQUID GT SCH (10:44)
[2023-10-14] MEDS: ASPIRIN 81 MG CHEWABLE TABLETS GT SCH (10:45)
[2023-10-14] MEDS: ASCORBIC ACID 500 MG TABLET (FP) GT SCH ×2 (10:45→22:16)
[2023-10-14] MEDS: CYANOCOBALAMIN 1,000 MCG TABLET (FP) GT SCH (10:45)
[2023-10-14] MEDS: THIAMINE HCL 100 MG TABLET (FP) NGT SCH (10:45)
[2023-10-14] MEDS: FOLIC ACID 1 MG TABLET (FP) GT SCH (10:45)
[2023-10-14] MEDS: ZINC SULFATE 220 MG CAPSULE (FP) GT SCH (10:47)
[2023-10-14] MEDS ORDERED: POLYMYXIN B SULFATE 500,000 UNIT VIAL IVPB ONE (14:25)
[2023-10-14] MEDS: WATER IVPB SCH (15:11)
[2023-10-14] MEDS: POLYMYXIN B SULFATE IVPB SCH (15:11)
[2023-10-14] MEDS: DEXTROSE 5% IVPB SCH (15:11)
[2023-10-14] MEDS: ATORVASTATIN CA 40 MG TABLET (FP) GT SCH (22:15)
[2023-10-14] MEDS: QUEtiapine FUMARATE 25 MG TABLET GT SCH (22:15)
[2023-10-15] MEDS: VANCOMYCIN ORAL SOLUTION 125 MG/2.5 ML PEG SCH ×4 (01:19→17:52)
[2023-10-15] MEDS: MEROPENEM 1 GM in DEXTROSE 5%-WATER 100 ML IVPB SCH ×3 (01:19→20:22)
[2023-10-15] MEDS: WATER IVPB SCH (05:02)
[2023-10-15] MEDS: POLYMYXIN B SULFATE IVPB SCH (05:02)
[2023-10-15] MEDS: DEXTROSE 5% IVPB SCH (05:02)
[2023-10-15] MEDS: BANATROL PLUS POWDER PACKET PEG SCH ×3 (06:10→22:38)
[2023-10-15] MEDS: HEPARIN NA (PORCINE) 5,000 UNITS/ML 1ML VIAL SQ SCH ×3 (06:10→22:46)
[2023-10-15] MEDS: NYSTATIN POWDER 100,000 UNITS/GM - 15 GM TOPICAL POWDER TP SCH ×3 (06:10→23:55)
[2023-10-15] MEDS: BUDESONIDE 0.25 MG/2ML INH SUSP VIAL NEB SCH ×2 (07:40→19:53)
[2023-10-15] MEDS: LEVALBUTEROL HCL 0.63 MG/3 ML VIAL.NEB. IH SCH ×3 (07:40→19:54)
[2023-10-15] MEDS: FOLIC ACID 1 MG TABLET (FP) GT SCH (10:47)
[2023-10-15] MEDS: FAMOTIDINE 20 MG/2.5 ML ORAL LIQUID GT SCH (10:47)
[2023-10-15] MEDS: ASPIRIN 81 MG CHEWABLE TABLETS GT SCH (10:47)
[2023-10-15] MEDS: THIAMINE HCL 100 MG TABLET (FP) NGT SCH (10:48)
[2023-10-15] MEDS: ZINC SULFATE 220 MG CAPSULE (FP) GT SCH (10:48)
[2023-10-15] MEDS: CYANOCOBALAMIN 1,000 MCG TABLET (FP) GT SCH (10:48)
[2023-10-15] MEDS: ASCORBIC ACID 500 MG TABLET (FP) GT SCH ×2 (10:48→23:56)
[2023-10-15] MEDS: ACETAMINOPHEN 650 MG/20.3 ML ORAL SOLUTION (CUPS) GT SCH ×4 (10:48→22:47)
[2023-10-15] MEDS: AMINO ACIDS/PROTEIN HYDROLYS 30 ML LIQUID.PKT PEG SCH (10:50)
[2023-10-15] MEDS ORDERED: POLYMYXIN B SULFATE 500,000 UNIT VIAL IVPB SCH (15:00)
[2023-10-15] MEDS: CEFTAZIDIME/AVIBACTAM 2.5 GM in DEXTROSE 5%-WATER - 250 ML IVPB SCH ×2 (15:55→17:42)
[2023-10-15] MEDS: ATORVASTATIN CA 40 MG TABLET (FP) GT SCH (22:45)
[2023-10-15] MEDS: QUEtiapine FUMARATE 25 MG TABLET GT SCH (22:46)
[2023-10-16] MEDS: VANCOMYCIN ORAL SOLUTION 125 MG/2.5 ML PEG SCH ×5 (01:47→23:26)
[2023-10-16] MEDS: MEROPENEM 1 GM in DEXTROSE 5%-WATER 100 ML IVPB SCH ×4 (02:22→19:23)
[2023-10-16] MEDS: CEFTAZIDIME/AVIBACTAM 2.5 GM in DEXTROSE 5%-WATER - 250 ML IVPB SCH ×3 (03:15→17:36)
[2023-10-16] MEDS: HEPARIN NA (PORCINE) 5,000 UNITS/ML 1ML VIAL SQ SCH ×3 (06:40→22:46)
[2023-10-16] MEDS: NYSTATIN POWDER 100,000 UNITS/GM - 15 GM TOPICAL POWDER TP SCH ×3 (06:41→23:27)
[2023-10-16] MEDS: BANATROL PLUS POWDER PACKET PEG SCH ×3 (06:41→22:46)
[2023-10-16 08:30] LABS: HEMATOCRIT 34.1 % (35.4-49); MCH 31.3 pg (25.7-33.7); MCHC 32.2 g/dl (32.0-35.9); MEAN PLT VOLUME 7.8 fl (7.5-11.1); PLATELET COUNT 612 10^3/uL (134-434); RBC 3.51 M/mm3 (4.00-5.60); RDW 17.5 % (11.9-15.9)
[2023-10-16] MEDS: BUDESONIDE 0.25 MG/2ML INH SUSP VIAL NEB SCH ×2 (08:40→20:40)
[2023-10-16] MEDS: LEVALBUTEROL HCL 0.63 MG/3 ML VIAL.NEB. IH SCH ×3 (08:40→22:35)
[2023-10-16 08:56] LABS: POTASSIUM 3.6 mmol/L (3.5-5.1)
[2023-10-16 09:01] LABS: CALCIUM 7.9 mg/dL (8.5-10.1)
[2023-10-16 09:04] LABS: CREATININE 0.4 mg/dL (0.55-1.3)
[2023-10-16] MEDS: AMINO ACIDS/PROTEIN HYDROLYS 30 ML LIQUID.PKT PEG SCH (09:08)
[2023-10-16 09:53] LABS: ANISOCYTOSIS 3+; MACROCYTOSIS 0
[2023-10-16] MEDS: ACETAMINOPHEN 650 MG/20.3 ML ORAL SOLUTION (CUPS) GT SCH ×4 (10:22→22:43)
[2023-10-16] MEDS: FAMOTIDINE 20 MG/2.5 ML ORAL LIQUID GT SCH (10:22)
[2023-10-16] MEDS: CYANOCOBALAMIN 1,000 MCG TABLET (FP) GT SCH (10:23)
[2023-10-16] MEDS: FOLIC ACID 1 MG TABLET (FP) GT SCH (10:23)
[2023-10-16] MEDS: THIAMINE HCL 100 MG TABLET (FP) NGT SCH (10:23)
[2023-10-16] MEDS: ZINC SULFATE 220 MG CAPSULE (FP) GT SCH (10:23)
[2023-10-16] MEDS: ASPIRIN 81 MG CHEWABLE TABLETS GT SCH (10:23)
[2023-10-16] MEDS: ASCORBIC ACID 500 MG TABLET (FP) GT SCH ×2 (10:24→22:46)
[2023-10-16] MEDS: AMINO ACIDS/PROTEIN HYDROLYS 30 ML LIQUID.PKT GT SCH (17:34)
[2023-10-16] MEDS: QUEtiapine FUMARATE 25 MG TABLET GT SCH (22:46)
[2023-10-16] MEDS: ATORVASTATIN CA 40 MG TABLET (FP) GT SCH (22:46)
[2023-10-17] MEDS: MEROPENEM 1 GM in DEXTROSE 5%-WATER 100 ML IVPB SCH ×3 (01:07→17:49)
[2023-10-17] MEDS: CEFTAZIDIME/AVIBACTAM 2.5 GM in DEXTROSE 5%-WATER - 250 ML IVPB SCH ×3 (03:01→17:34)
[2023-10-17] MEDS: BANATROL PLUS POWDER PACKET PEG SCH ×3 (06:39→23:03)
[2023-10-17] MEDS: NYSTATIN POWDER 100,000 UNITS/GM - 15 GM TOPICAL POWDER TP SCH ×3 (06:39→23:05)
[2023-10-17] MEDS: HEPARIN NA (PORCINE) 5,000 UNITS/ML 1ML VIAL SQ SCH ×3 (06:39→23:03)
[2023-10-17] MEDS: VANCOMYCIN ORAL SOLUTION 125 MG/2.5 ML PEG SCH ×4 (06:50→23:07)
[2023-10-17] MEDS: LEVALBUTEROL HCL 0.63 MG/3 ML VIAL.NEB. IH SCH (08:02)
[2023-10-17] MEDS: BUDESONIDE 0.25 MG/2ML INH SUSP VIAL NEB SCH ×2 (08:03→20:05)
[2023-10-17] MEDS: AMINO ACIDS/PROTEIN HYDROLYS 30 ML LIQUID.PKT GT SCH ×3 (08:47→16:54)
[2023-10-17] MEDS: ACETAMINOPHEN 650 MG/20.3 ML ORAL SOLUTION (CUPS) GT SCH ×4 (11:22→23:04)
[2023-10-17] MEDS: ZINC SULFATE 220 MG CAPSULE (FP) GT SCH (11:23)
[2023-10-17] MEDS: THIAMINE HCL 100 MG TABLET (FP) NGT SCH (11:23)
[2023-10-17] MEDS: ASCORBIC ACID 500 MG TABLET (FP) GT SCH ×2 (11:23→23:07)
[2023-10-17] MEDS: ASPIRIN 81 MG CHEWABLE TABLETS GT SCH (11:23)
[2023-10-17] MEDS: CYANOCOBALAMIN 1,000 MCG TABLET (FP) GT SCH (11:23)
[2023-10-17] MEDS: FAMOTIDINE 20 MG/2.5 ML ORAL LIQUID GT SCH (11:24)
[2023-10-17] MEDS: FOLIC ACID 1 MG TABLET (FP) GT SCH (11:24)
[2023-10-17] MEDS: ATORVASTATIN CA 40 MG TABLET (FP) GT SCH (23:03)
[2023-10-17] MEDS: QUEtiapine FUMARATE 25 MG TABLET GT SCH (23:03)
[2023-10-18] MEDS: MEROPENEM 1 GM in DEXTROSE 5%-WATER 100 ML IVPB SCH ×3 (01:52→18:32)
[2023-10-18] MEDS: CEFTAZIDIME/AVIBACTAM 2.5 GM in DEXTROSE 5%-WATER - 250 ML IVPB SCH ×3 (02:50→18:18)
[2023-10-18] MEDS: VANCOMYCIN ORAL SOLUTION 125 MG/2.5 ML PEG SCH ×3 (07:04→19:27)
[2023-10-18] MEDS: HEPARIN NA (PORCINE) 5,000 UNITS/ML 1ML VIAL SQ SCH (07:04)
[2023-10-18] MEDS: BANATROL PLUS POWDER PACKET PEG SCH ×3 (07:04→21:55)
[2023-10-18] MEDS: NYSTATIN POWDER 100,000 UNITS/GM - 15 GM TOPICAL POWDER TP SCH ×4 (07:05→21:56)
[2023-10-18] MEDS: BUDESONIDE 0.25 MG/2ML INH SUSP VIAL NEB SCH ×2 (07:10→20:05)
[2023-10-18 07:34] LABS: HEMATOCRIT 24.6 % (35.4-49); HEMOGLOBIN 7.9 GM/dL (11.7-16.9); MCHC 32.1 g/dl (32.0-35.9); MEAN CELL VOLUME 96.7 fl (80-96); MEAN PLT VOLUME 7.5 fl (7.5-11.1); PLATELET COUNT 595 10^3/uL (134-434); RBC 2.54 M/mm3 (4.00-5.60); RDW 17.2 % (11.9-15.9); WHITE BLOOD COUNT 11.4 K/mm3 (4.0-10.0)
[2023-10-18 08:16] LABS: CHLORIDE 101 mmol/L (98-107); POTASSIUM 3.5 mmol/L (3.5-5.1); SODIUM 137 mmol/L (136-145)
[2023-10-18 08:30] LABS: GLUCOSE,RANDOM 102 mg/dL (74-106)
[2023-10-18 08:31] LABS: ANION GAP 8 mmol/L (4-13); BLOOD UREA NITROGEN 18.3 mg/dL (7-18); CO2 27 mmol/L (21-32)
[2023-10-18] MEDS: AMINO ACIDS/PROTEIN HYDROLYS 30 ML LIQUID.PKT GT SCH ×3 (08:32→17:48)
[2023-10-18 08:33] LABS: CREATININE 0.3 mg/dL (0.55-1.3); SGOT/AST 18 U/L (15-37); SGPT/ALT 17 U/L (13-61)
[2023-10-18 08:34] LABS: ALK PHOS 113 U/L (45-117); BILIRUBIN,TOTAL < 0.1 mg/dL (0.2-1); TOT PROT 4.8 g/dl (6.4-8.2)
[2023-10-18 08:39] LABS: ALBUMIN 1.1 g/dl (3.4-5.0)
[2023-10-18 09:23] LABS: ANISOCYTOSIS 0; MACROCYTOSIS 0
[2023-10-18] MEDS: ACETAMINOPHEN 650 MG/20.3 ML ORAL SOLUTION (CUPS) GT SCH ×4 (10:51→21:53)
[2023-10-18] MEDS: THIAMINE HCL 100 MG TABLET (FP) NGT SCH (10:52)
[2023-10-18] MEDS: ASPIRIN 81 MG CHEWABLE TABLETS GT SCH (10:52)
[2023-10-18] MEDS: ASCORBIC ACID 500 MG TABLET (FP) GT SCH ×2 (10:52→21:54)
[2023-10-18] MEDS: FOLIC ACID 1 MG TABLET (FP) GT SCH (10:52)
[2023-10-18] MEDS: CYANOCOBALAMIN 1,000 MCG TABLET (FP) GT SCH (10:53)
[2023-10-18] MEDS: ZINC SULFATE 220 MG CAPSULE (FP) GT SCH (10:53)
[2023-10-18] MEDS: FAMOTIDINE 20 MG/2.5 ML ORAL LIQUID GT SCH (10:53)
[2023-10-18] MEDS: MINERAL OIL/PET HY-PHL TOPICAL OINTMENT 454 GM JAR TP SCH (16:58)
[2023-10-18] MEDS: ATORVASTATIN CA 40 MG TABLET (FP) GT SCH (21:54)
[2023-10-18] MEDS: QUEtiapine FUMARATE 25 MG TABLET GT SCH (21:55)
[2023-10-19] MEDS: VANCOMYCIN ORAL SOLUTION 125 MG/2.5 ML PEG SCH ×2 (00:25→05:20)
[2023-10-19] MEDS: CEFTAZIDIME/AVIBACTAM 2.5 GM in DEXTROSE 5%-WATER - 250 ML IVPB SCH ×3 (01:09→18:08)
[2023-10-19] MEDS: MEROPENEM 1 GM in DEXTROSE 5%-WATER 100 ML IVPB SCH ×2 (02:50→10:33)
[2023-10-19] MEDS: BANATROL PLUS POWDER PACKET PEG SCH ×3 (05:20→21:29)
[2023-10-19] MEDS: NYSTATIN POWDER 100,000 UNITS/GM - 15 GM TOPICAL POWDER TP SCH ×4 (05:21→22:55)
[2023-10-19] MEDS: BUDESONIDE 0.25 MG/2ML INH SUSP VIAL NEB SCH ×2 (08:43→20:21)
[2023-10-19] MEDS: AMINO ACIDS/PROTEIN HYDROLYS 30 ML LIQUID.PKT GT SCH ×2 (10:33→13:01)
[2023-10-19] MEDS: MINERAL OIL/PET HY-PHL TOPICAL OINTMENT 454 GM JAR TP SCH (10:34)
[2023-10-19] MEDS: ZINC SULFATE 220 MG CAPSULE (FP) GT SCH (10:34)
[2023-10-19] MEDS: ACETAMINOPHEN 650 MG/20.3 ML ORAL SOLUTION (CUPS) GT SCH ×4 (10:34→21:29)
[2023-10-19] MEDS: FOLIC ACID 1 MG TABLET (FP) GT SCH (10:35)
[2023-10-19] MEDS: ASPIRIN 81 MG CHEWABLE TABLETS GT SCH (10:35)
[2023-10-19] MEDS: THIAMINE HCL 100 MG TABLET (FP) NGT SCH (10:35)
[2023-10-19] MEDS: ASCORBIC ACID 500 MG TABLET (FP) GT SCH ×2 (10:35→21:28)
[2023-10-19] MEDS: FAMOTIDINE 20 MG/2.5 ML ORAL LIQUID GT SCH (10:35)
[2023-10-19] MEDS: CYANOCOBALAMIN 1,000 MCG TABLET (FP) GT SCH (10:35)
[2023-10-19] MEDS: VANCOMYCIN ORAL SOLUTION 125 MG/2.5 ML GT SCH (13:02)
[2023-10-19] MEDS ORDERED: POTASSIUM CHLORIDE ORAL LIQUID 20 MEQ/15 ML PO ONE (14:30)
[2023-10-19] MEDS: QUEtiapine FUMARATE 25 MG TABLET GT SCH (21:28)
[2023-10-19] MEDS: ATORVASTATIN CA 40 MG TABLET (FP) GT SCH (21:29)
[2023-10-20] MEDS: CEFTAZIDIME/AVIBACTAM 2.5 GM in DEXTROSE 5%-WATER - 250 ML IVPB SCH ×3 (02:03→20:38)
[2023-10-20] MEDS: BANATROL PLUS POWDER PACKET PEG SCH ×2 (05:58→13:28)
[2023-10-20] MEDS: NYSTATIN POWDER 100,000 UNITS/GM - 15 GM TOPICAL POWDER TP SCH ×3 (05:58→22:03)
[2023-10-20] MEDS: BUDESONIDE 0.25 MG/2ML INH SUSP VIAL NEB SCH ×2 (07:35→20:30)
[2023-10-20 09:23] LABS: BASO % 0.6 % (0-2.0); EOS % 1.1 % (0-4.5); HEMATOCRIT 13.4 % (35.4-49); LYMPH % 6.5 % (8-40); MCH 33.4 pg (25.7-33.7); MEAN CELL VOLUME 98.2 fl (80-96); MEAN PLT VOLUME 8.2 fl (7.5-11.1); MONO % 7.8 % (3.8-10.2); PLATELET COUNT 451 10^3/uL (134-434); RBC 1.36 M/mm3 (4.00-5.60); RDW 18.5 % (11.9-15.9)
[2023-10-20 09:46] LABS: HEMOGLOBIN 4.6 GM/dL (11.7-16.9)
[2023-10-20] MEDS: ASPIRIN 81 MG CHEWABLE TABLETS GT SCH (10:20)
[2023-10-20] MEDS: CYANOCOBALAMIN 1,000 MCG TABLET (FP) GT SCH (10:20)
[2023-10-20] MEDS: FOLIC ACID 1 MG TABLET (FP) GT SCH (10:20)
[2023-10-20] MEDS: ZINC SULFATE 220 MG CAPSULE (FP) GT SCH (10:20)
[2023-10-20] MEDS: THIAMINE HCL 100 MG TABLET (FP) NGT SCH (10:20)
[2023-10-20] MEDS: ASCORBIC ACID 500 MG TABLET (FP) GT SCH (10:20)
[2023-10-20] MEDS: FAMOTIDINE 20 MG/2.5 ML ORAL LIQUID GT SCH (10:22)
[2023-10-20] MEDS: ACETAMINOPHEN 650 MG/20.3 ML ORAL SOLUTION (CUPS) GT SCH ×3 (10:23→17:14)
[2023-10-20] MEDS: MINERAL OIL/PET HY-PHL TOPICAL OINTMENT 454 GM JAR TP SCH (10:24)
[2023-10-20] MEDS ORDERED: LACTATED RINGERS SOLUTION 1,000 ML/1,000 ML INFUS.BAG IV SCH (10:30)
[2023-10-20] MEDS ORDERED: PANTOPRAZOLE SODIUM 40 MG VIAL IVPUSH ONE (10:30)
[2023-10-20] MEDS ORDERED: PANTOPRAZOLE SODIUM 80 MG in SODIUM CHLORIDE 100 ML IVPB SCH (10:30)
[2023-10-20] MEDS: PANTOPRAZOLE SODIUM 160 MG in SODIUM CHLORIDE 290 ML IVPB SCH (14:29)
[2023-10-20] MEDS: VANCOMYCIN ORAL SOLUTION 125 MG/2.5 ML GT SCH ×2 (17:15→23:22)
[2023-10-20] MEDS: LACTATED RINGERS SOLUTION 1,000 ML/1,000 ML INFUS.BAG IV SCH (20:39)
[2023-10-20] MEDS: VANCOMYCIN ORAL SOLUTION 125 MG/2.5 ML PEG SCH (20:40)
[2023-10-20 21:37] LABS: BASO % 1.3 % (0-2.0); EOS % 0.8 % (0-4.5); HEMATOCRIT 28.7 % (35.4-49); HEMOGLOBIN 9.9 GM/dL (11.7-16.9); LYMPH % 8.3 % (8-40); MCH 32.7 pg (25.7-33.7); MCHC 34.5 g/dl (32.0-35.9); MEAN CELL VOLUME 94.8 fl (80-96); MEAN PLT VOLUME 7.9 fl (7.5-11.1); MONO % 9.3 % (3.8-10.2); NEUT % 80.3 % (42.8-82.8); PLATELET COUNT 447 10^3/uL (134-434); RBC 3.03 M/mm3 (4.00-5.60); RDW 16.1 % (11.9-15.9); WHITE BLOOD COUNT 11.3 K/mm3 (4.0-10.0)
[2023-10-20] MEDS: MUPIROCIN 2% TOPICAL OINTMENT FOR DECOLONIZATION NS SCH (22:02)
[2023-10-20] MEDS: ATORVASTATIN CA 40 MG TABLET (FP) GT SCH (22:02)
[2023-10-20] MEDS: CHLORHEXIDINE GLUCONATE 4% CLEANSER FOR DECOLONIZATION TP SCH (22:03)
[2023-10-20] MEDS ORDERED: ACETAMINOPHEN 650 MG/20.3 ML ORAL SOLUTION (CUPS) PO PRN (22:17)
[2023-10-20] MEDS ORDERED: ACETAMINOPHEN 1000 MG/100 ML BAG IVPB ONE (22:18)
[2023-10-20] MEDS ORDERED: ACETAMINOPHEN 650 MG/20.3 ML ORAL SOLUTION (CUPS) PEG PRN (22:18)
[2023-10-21] MEDS: CEFTAZIDIME/AVIBACTAM 2.5 GM in DEXTROSE 5%-WATER - 250 ML IVPB SCH ×3 (03:04→17:18)
[2023-10-21] MEDS: NYSTATIN POWDER 100,000 UNITS/GM - 15 GM TOPICAL POWDER TP SCH ×3 (06:26→21:25)
[2023-10-21] MEDS: VANCOMYCIN ORAL SOLUTION 125 MG/2.5 ML GT SCH ×3 (06:26→17:19)
[2023-10-21 06:34] LABS: EOS % 1.4 % (0-4.5); HEMATOCRIT 25.2 % (35.4-49); HEMOGLOBIN 8.9 GM/dL (11.7-16.9); LYMPH % 8.2 % (8-40); MCH 33.1 pg (25.7-33.7); MCHC 35.4 g/dl (32.0-35.9); MEAN CELL VOLUME 93.4 fl (80-96); MEAN PLT VOLUME 7.9 fl (7.5-11.1); MONO % 9.5 % (3.8-10.2); NEUT % 79.9 % (42.8-82.8); PLATELET COUNT 437 10^3/uL (134-434); RDW 16.2 % (11.9-15.9); WHITE BLOOD COUNT 10.3 K/mm3 (4.0-10.0)
[2023-10-21 06:48] LABS: POTASSIUM 3.5 mmol/L (3.5-5.1)
[2023-10-21 06:53] LABS: CALCIUM 7.7 mg/dL (8.5-10.1)
[2023-10-21 06:54] LABS: BLOOD UREA NITROGEN 12.4 mg/dL (7-18); MAGNESIUM 1.9 mg/dL (1.8-2.4)
[2023-10-21 06:57] LABS: CREATININE 0.4 mg/dL (0.55-1.3); PHOSPHOROUS 1.5 mg/dL (2.5-4.9)
[2023-10-21 06:59] LABS: TOT PROT 5.1 g/dl (6.4-8.2)
[2023-10-21] MEDS: BUDESONIDE 0.25 MG/2ML INH SUSP VIAL NEB SCH ×2 (07:30→20:05)
[2023-10-21] MEDS ORDERED: NAPH,MB-DB/K PH,MBDB POWDER PACKET PO ONE (07:40)
[2023-10-21 08:34] LABS: ALBUMIN 1.4 g/dl (3.4-5.0); BILIRUBIN,TOTAL 0.4 mg/dL (0.2-1)
[2023-10-21] MEDS ORDERED: COLLAGENASE CLOSTRIDIUM HIST. 30 GRAMS TUBE TP SCH (10:00)
[2023-10-21] MEDS: MINERAL OIL/PET HY-PHL TOPICAL OINTMENT 454 GM JAR TP SCH (10:09)
[2023-10-21] MEDS: MUPIROCIN 2% TOPICAL OINTMENT FOR DECOLONIZATION NS SCH ×2 (10:11→21:24)
[2023-10-21] MEDS: PANTOPRAZOLE SODIUM 160 MG in SODIUM CHLORIDE 290 ML IVPB SCH (10:38)
[2023-10-21] MEDS: QUEtiapine FUMARATE 25 MG TABLET PO SCH (10:38)
[2023-10-21] MEDS: CHLORHEXIDINE GLUCONATE 4% CLEANSER FOR DECOLONIZATION TP SCH (21:24)
[2023-10-21] MEDS: LACTATED RINGERS SOLUTION 1,000 ML/1,000 ML INFUS.BAG IV SCH (21:24)
[2023-10-21] MEDS: PANTOPRAZOLE SODIUM 40 MG VIAL IVPUSH SCH (21:25)
[2023-10-21] MEDS: ATORVASTATIN CA 40 MG TABLET (FP) GT SCH (21:25)
[2023-10-22] MEDS: VANCOMYCIN ORAL SOLUTION 125 MG/2.5 ML GT SCH ×4 (00:38→17:48)
[2023-10-22] MEDS: CEFTAZIDIME/AVIBACTAM 2.5 GM in DEXTROSE 5%-WATER - 250 ML IVPB SCH ×3 (02:53→17:49)
[2023-10-22] MEDS: NYSTATIN POWDER 100,000 UNITS/GM - 15 GM TOPICAL POWDER TP SCH ×3 (05:30→22:50)
[2023-10-22] MEDS: BUDESONIDE 0.25 MG/2ML INH SUSP VIAL NEB SCH ×2 (08:15→21:06)
[2023-10-22] MEDS: PANTOPRAZOLE SODIUM 40 MG VIAL IVPUSH SCH (10:09)
[2023-10-22] MEDS: QUEtiapine FUMARATE 25 MG TABLET PO SCH (10:09)
[2023-10-22] MEDS: MINERAL OIL/PET HY-PHL TOPICAL OINTMENT 454 GM JAR TP SCH (10:12)
[2023-10-22] MEDS: MUPIROCIN 2% TOPICAL OINTMENT FOR DECOLONIZATION NS SCH ×2 (10:12→21:27)
[2023-10-22 12:56] LABS: BASO % 0.5 % (0-2.0); EOS % 0.7 % (0-4.5); HEMATOCRIT 28.1 % (35.4-49); HEMOGLOBIN 9.4 GM/dL (11.7-16.9); LYMPH % 5.3 % (8-40); MCH 32.1 pg (25.7-33.7); MCHC 33.3 g/dl (32.0-35.9); MEAN CELL VOLUME 96.5 fl (80-96); MEAN PLT VOLUME 7.7 fl (7.5-11.1); MONO % 8.2 % (3.8-10.2); NEUT % 85.3 % (42.8-82.8); PLATELET COUNT 537 10^3/uL (134-434); RBC 2.91 M/mm3 (4.00-5.60); RDW 16.7 % (11.9-15.9); WHITE BLOOD COUNT 14.4 K/mm3 (4.0-10.0)
[2023-10-22 13:14] LABS: POTASSIUM 3.4 mmol/L (3.5-5.1)
[2023-10-22 13:17] LABS: CALCIUM 7.4 mg/dL (8.5-10.1)
[2023-10-22 13:18] LABS: ALBUMIN 1.4 g/dl (3.4-5.0); BLOOD UREA NITROGEN 10.3 mg/dL (7-18)
[2023-10-22 13:21] LABS: CREATININE 0.4 mg/dL (0.55-1.3)
[2023-10-22 13:23] LABS: BILIRUBIN,TOTAL 0.4 mg/dL (0.2-1); TOT PROT 5.1 g/dl (6.4-8.2)
[2023-10-22] MEDS ORDERED: POTASSIUM CHLORIDE ORAL LIQUID 20 MEQ/15 ML PO ONE (13:26)
[2023-10-22] MEDS ORDERED: MAGNESIUM OXIDE 400 MG TABLET (FP) PO ONE (13:26)
[2023-10-22] MEDS ORDERED: POTASSIUM CHLORIDE ORAL LIQUID 20 MEQ/15 ML GT ONE (14:35)
[2023-10-22] MEDS: NAPH,MB-DB/K PH,MBDB POWDER PACKET GT SCH ×2 (14:49→21:26)
[2023-10-22] MEDS: LACTATED RINGERS SOLUTION 1,000 ML/1,000 ML INFUS.BAG IV SCH (19:28)
[2023-10-22] MEDS: ATORVASTATIN CA 40 MG TABLET (FP) GT SCH (21:26)
[2023-10-22] MEDS: CHLORHEXIDINE GLUCONATE 4% CLEANSER FOR DECOLONIZATION TP SCH (21:27)
[2023-10-23] MEDS: VANCOMYCIN ORAL SOLUTION 125 MG/2.5 ML GT SCH ×4 (00:08→17:24)
[2023-10-23] MEDS: CEFTAZIDIME/AVIBACTAM 2.5 GM in DEXTROSE 5%-WATER - 250 ML IVPB SCH ×3 (01:32→17:54)
[2023-10-23] MEDS: NAPH,MB-DB/K PH,MBDB POWDER PACKET GT SCH ×3 (05:23→18:36)
[2023-10-23] MEDS: NYSTATIN POWDER 100,000 UNITS/GM - 15 GM TOPICAL POWDER TP SCH ×3 (05:24→21:28)
[2023-10-23] MEDS: BUDESONIDE 0.25 MG/2ML INH SUSP VIAL NEB SCH ×2 (08:10→20:50)
[2023-10-23 08:27] LABS: BASO % 0.7 % (0-2.0); EOS % 1.1 % (0-4.5); HEMATOCRIT 26.5 % (35.4-49); LYMPH % 7.6 % (8-40); MCHC 33.8 g/dl (32.0-35.9); MEAN CELL VOLUME 97.7 fl (80-96); MEAN PLT VOLUME 7.9 fl (7.5-11.1); MONO % 10.8 % (3.8-10.2); NEUT % 79.8 % (42.8-82.8); PLATELET COUNT 505 10^3/uL (134-434); RBC 2.71 M/mm3 (4.00-5.60); WHITE BLOOD COUNT 10.7 K/mm3 (4.0-10.0)
[2023-10-23 09:38] LABS: POTASSIUM 3.7 mmol/L (3.5-5.1)
[2023-10-23 09:48] LABS: ALBUMIN 1.3 g/dl (3.4-5.0); BLOOD UREA NITROGEN 8.7 mg/dL (7-18)
[2023-10-23 09:51] LABS: BILIRUBIN,TOTAL 0.2 mg/dL (0.2-1); CREATININE 0.3 mg/dL (0.55-1.3); PHOSPHOROUS 1.9 mg/dL (2.5-4.9)
[2023-10-23 09:53] LABS: TOT PROT 4.8 g/dl (6.4-8.2)
[2023-10-23] MEDS: QUEtiapine FUMARATE 25 MG TABLET PO SCH (10:14)
[2023-10-23] MEDS: PANTOPRAZOLE SODIUM 40 MG VIAL IVPUSH SCH (10:14)
[2023-10-23] MEDS: MINERAL OIL/PET HY-PHL TOPICAL OINTMENT 454 GM JAR TP SCH (10:15)
[2023-10-23] MEDS: MUPIROCIN 2% TOPICAL OINTMENT FOR DECOLONIZATION NS SCH ×2 (10:16→21:27)
[2023-10-23] MEDS ORDERED: LACTATED RINGERS SOLUTION 1,000 ML/1,000 ML INFUS.BAG IV SCH (17:22)
[2023-10-23] MEDS: CHLORHEXIDINE GLUCONATE 4% CLEANSER FOR DECOLONIZATION TP SCH (21:27)
[2023-10-23] MEDS: BANATROL PLUS POWDER PACKET PEG SCH (21:27)
[2023-10-23] MEDS: ATORVASTATIN CA 40 MG TABLET (FP) GT SCH (21:28)
[2023-10-24] MEDS: VANCOMYCIN ORAL SOLUTION 125 MG/2.5 ML GT SCH ×4 (00:35→17:30)
[2023-10-24] MEDS: CEFTAZIDIME/AVIBACTAM 2.5 GM in DEXTROSE 5%-WATER - 250 ML IVPB SCH ×3 (02:56→17:20)
[2023-10-24] MEDS: BANATROL PLUS POWDER PACKET PEG SCH ×3 (05:25→21:18)
[2023-10-24] MEDS: NYSTATIN POWDER 100,000 UNITS/GM - 15 GM TOPICAL POWDER TP SCH ×3 (05:26→21:19)
[2023-10-24] MEDS: BUDESONIDE 0.25 MG/2ML INH SUSP VIAL NEB SCH ×2 (08:10→20:56)
[2023-10-24 08:28] LABS: HEMATOCRIT 26.9 % (35.4-49); HEMOGLOBIN 8.8 GM/dL (11.7-16.9); MCH 32.5 pg (25.7-33.7); MCHC 32.8 g/dl (32.0-35.9); MEAN PLT VOLUME 7.6 fl (7.5-11.1); PLATELET COUNT 539 10^3/uL (134-434); POTASSIUM 3.8 mmol/L (3.5-5.1); RBC 2.72 M/mm3 (4.00-5.60); WHITE BLOOD COUNT 11.3 K/mm3 (4.0-10.0)
[2023-10-24 08:31] LABS: CALCIUM 7.5 mg/dL (8.5-10.1)
[2023-10-24 08:32] LABS: ALBUMIN 1.3 g/dl (3.4-5.0); BLOOD UREA NITROGEN 9.4 mg/dL (7-18); MAGNESIUM 2.1 mg/dL (1.8-2.4)
[2023-10-24 08:35] LABS: CREATININE 0.3 mg/dL (0.55-1.3); PHOSPHOROUS 2.1 mg/dL (2.5-4.9)
[2023-10-24 08:36] LABS: BILIRUBIN,TOTAL 0.2 mg/dL (0.2-1); TOT PROT 5.2 g/dl (6.4-8.2)
[2023-10-24] MEDS: PANTOPRAZOLE SODIUM 40 MG VIAL IVPUSH SCH (09:19)
[2023-10-24] MEDS: QUEtiapine FUMARATE 25 MG TABLET PO SCH (09:19)
[2023-10-24] MEDS: MULTIVIT-MINERALS ORAL LIQUID PO SCH (09:19)
[2023-10-24] MEDS: MUPIROCIN 2% TOPICAL OINTMENT FOR DECOLONIZATION NS SCH ×2 (09:20→21:19)
[2023-10-24] MEDS: MINERAL OIL/PET HY-PHL TOPICAL OINTMENT 454 GM JAR TP SCH (09:20)
[2023-10-24] MEDS ORDERED: NAPH,MB-DB/K PH,MBDB POWDER PACKET GT ONE (19:48)
[2023-10-24] MEDS: ATORVASTATIN CA 40 MG TABLET (FP) GT SCH (21:18)
[2023-10-24] MEDS: CHLORHEXIDINE GLUCONATE 4% CLEANSER FOR DECOLONIZATION TP SCH (21:19)
[2023-10-25] MEDS: VANCOMYCIN ORAL SOLUTION 125 MG/2.5 ML GT SCH ×4 (00:30→18:11)
[2023-10-25] MEDS: CEFTAZIDIME/AVIBACTAM 2.5 GM in DEXTROSE 5%-WATER - 250 ML IVPB SCH ×2 (01:10→11:46)
[2023-10-25] MEDS: BANATROL PLUS POWDER PACKET PEG SCH ×3 (06:16→22:49)
[2023-10-25] MEDS: NYSTATIN POWDER 100,000 UNITS/GM - 15 GM TOPICAL POWDER TP SCH ×3 (06:17→23:40)
[2023-10-25 07:23] LABS: HEMATOCRIT 26.3 % (35.4-49); HEMOGLOBIN 8.6 GM/dL (11.7-16.9); MCH 32.9 pg (25.7-33.7); MCHC 32.8 g/dl (32.0-35.9); MEAN CELL VOLUME 100.4 fl (80-96); MEAN PLT VOLUME 7.5 fl (7.5-11.1); PLATELET COUNT 489 10^3/uL (134-434); RBC 2.62 M/mm3 (4.00-5.60); RDW 19.5 % (11.9-15.9); WHITE BLOOD COUNT 9.6 K/mm3 (4.0-10.0)
[2023-10-25 07:43] LABS: POTASSIUM 3.7 mmol/L (3.5-5.1)
[2023-10-25 07:54] LABS: ALBUMIN 1.3 g/dl (3.4-5.0); BLOOD UREA NITROGEN 9.4 mg/dL (7-18); CALCIUM 7.3 mg/dL (8.5-10.1); MAGNESIUM 1.9 mg/dL (1.8-2.4)
[2023-10-25 07:58] LABS: BILIRUBIN,TOTAL 0.2 mg/dL (0.2-1); CREATININE 0.3 mg/dL (0.55-1.3); PHOSPHOROUS 1.9 mg/dL (2.5-4.9)
[2023-10-25] MEDS: BUDESONIDE 0.25 MG/2ML INH SUSP VIAL NEB SCH ×2 (08:00→20:12)
[2023-10-25] MEDS: QUEtiapine FUMARATE 25 MG TABLET PO SCH (09:51)
[2023-10-25] MEDS: PANTOPRAZOLE SODIUM 40 MG VIAL IVPUSH SCH (09:51)
[2023-10-25] MEDS: MUPIROCIN 2% TOPICAL OINTMENT FOR DECOLONIZATION NS SCH (09:52)
[2023-10-25] MEDS: MINERAL OIL/PET HY-PHL TOPICAL OINTMENT 454 GM JAR TP SCH (09:52)
[2023-10-25] MEDS: MULTIVIT-MINERALS ORAL LIQUID PO SCH (09:52)
[2023-10-25] MEDS ORDERED: CEFTAZIDIME/AVIBACTAM 2.5 GM in DEXTROSE 5%-WATER - 250 ML IVPB SCH (18:00)
[2023-10-25] MEDS: NAPH,MB-DB/K PH,MBDB POWDER PACKET GT SCH ×2 (18:11→21:45)
[2023-10-25] MEDS ORDERED: CHLORHEXIDINE GLUCONATE 4% CLEANSER FOR DECOLONIZATION TP SCH (22:00)
[2023-10-25] MEDS ORDERED: MUPIROCIN 2% TOPICAL OINTMENT FOR DECOLONIZATION NS SCH (22:00)
[2023-10-25] MEDS: ATORVASTATIN CA 40 MG TABLET (FP) GT SCH (22:50)
[2023-10-25] MEDS: ACETAMINOPHEN 650 MG/20.3 ML ORAL SOLUTION (CUPS) PEG PRN (22:51)
[2023-10-26] MEDS: VANCOMYCIN ORAL SOLUTION 125 MG/2.5 ML GT SCH ×4 (00:20→17:10)
[2023-10-26] MEDS: NYSTATIN POWDER 100,000 UNITS/GM - 15 GM TOPICAL POWDER TP SCH ×3 (06:43→21:07)
[2023-10-26] MEDS: BANATROL PLUS POWDER PACKET PEG SCH ×3 (06:44→21:05)
[2023-10-26] MEDS: BUDESONIDE 0.25 MG/2ML INH SUSP VIAL NEB SCH ×2 (07:15→20:05)
[2023-10-26 08:46] LABS: HEMATOCRIT 26.6 % (35.4-49); HEMOGLOBIN 9.1 GM/dL (11.7-16.9); MCH 34.2 pg (25.7-33.7); MCHC 34.3 g/dl (32.0-35.9); MEAN CELL VOLUME 99.6 fl (80-96); MEAN PLT VOLUME 7.3 fl (7.5-11.1); PLATELET COUNT 499 10^3/uL (134-434); RBC 2.67 M/mm3 (4.00-5.60); RDW 19.1 % (11.9-15.9); WHITE BLOOD COUNT 7.7 K/mm3 (4.0-10.0)
[2023-10-26 09:00] LABS: POTASSIUM 3.6 mmol/L (3.5-5.1)
[2023-10-26 09:07] LABS: CALCIUM 7.9 mg/dL (8.5-10.1)
[2023-10-26 09:08] LABS: ALBUMIN 1.4 g/dl (3.4-5.0); BLOOD UREA NITROGEN 8.9 mg/dL (7-18)
[2023-10-26 09:11] LABS: CREATININE 0.3 mg/dL (0.55-1.3); PHOSPHOROUS 2.4 mg/dL (2.5-4.9)
[2023-10-26 09:13] LABS: BILIRUBIN,TOTAL 0.2 mg/dL (0.2-1); TOT PROT 5.1 g/dl (6.4-8.2)
[2023-10-26] MEDS ORDERED: COLLAGENASE CLOSTRIDIUM HIST. 30 GRAMS TUBE TP SCH (10:00)
[2023-10-26] MEDS ORDERED: QUEtiapine FUMARATE 25 MG TABLET PO SCH ×2 (10:00→22:00)
[2023-10-26] MEDS: PANTOPRAZOLE SODIUM 40 MG VIAL IVPUSH SCH (10:46)
[2023-10-26] MEDS: MULTIVIT-MINERALS ORAL LIQUID PO SCH (10:48)
[2023-10-26] MEDS: NAPH,MB-DB/K PH,MBDB POWDER PACKET GT SCH ×4 (10:50→21:07)
[2023-10-26] MEDS: MINERAL OIL/PET HY-PHL TOPICAL OINTMENT 454 GM JAR TP SCH (10:52)
[2023-10-26] MEDS: ACETAMINOPHEN 650 MG/20.3 ML ORAL SOLUTION (CUPS) PEG PRN (10:54)
[2023-10-26] MEDS ORDERED: QUEtiapine FUMARATE 25 MG TABLET PO ONE (19:15)
[2023-10-26] MEDS ORDERED: POTASSIUM PHOSPHATE 15 MM in DEXTROSE 5%-WATER - 250 ML IVPB ONE (20:00)
[2023-10-26] MEDS: ATORVASTATIN CA 40 MG TABLET (FP) GT SCH (21:06)
[2023-10-27] MEDS: VANCOMYCIN ORAL SOLUTION 125 MG/2.5 ML GT SCH (00:15)
[2023-10-27 04:15] VITALS: RESP 18
[2023-10-27] MEDS: BANATROL PLUS POWDER PACKET PEG SCH ×3 (06:40→22:55)
[2023-10-27] MEDS: NYSTATIN POWDER 100,000 UNITS/GM - 15 GM TOPICAL POWDER TP SCH ×3 (06:49→22:56)
[2023-10-27] MEDS: BUDESONIDE 0.25 MG/2ML INH SUSP VIAL NEB SCH ×2 (07:35→20:15)
[2023-10-27 10:20] LABS: HEMATOCRIT 28.9 % (35.4-49); HEMOGLOBIN 9.5 GM/dL (11.7-16.9); MCH 33.1 pg (25.7-33.7); MEAN CELL VOLUME 100.4 fl (80-96); MEAN PLT VOLUME 7.3 fl (7.5-11.1); PLATELET COUNT 488 10^3/uL (134-434); RBC 2.88 M/mm3 (4.00-5.60); RDW 19.4 % (11.9-15.9); WHITE BLOOD COUNT 8.7 K/mm3 (4.0-10.0)
[2023-10-27 10:39] LABS: POTASSIUM 4.1 mmol/L (3.5-5.1)
[2023-10-27 10:54] LABS: ALBUMIN 1.5 g/dl (3.4-5.0)
[2023-10-27 10:55] LABS: BLOOD UREA NITROGEN 9.6 mg/dL (7-18)
[2023-10-27 10:58] LABS: CREATININE 0.3 mg/dL (0.55-1.3); PHOSPHOROUS 2.9 mg/dL (2.5-4.9)
[2023-10-27 10:59] LABS: BILIRUBIN,TOTAL 0.2 mg/dL (0.2-1); TOT PROT 5.3 g/dl (6.4-8.2)
[2023-10-27] MEDS: QUEtiapine FUMARATE 25 MG TABLET PEG SCH ×2 (11:00→22:55)
[2023-10-27] MEDS: NAPH,MB-DB/K PH,MBDB POWDER PACKET GT SCH ×4 (11:00→22:58)
[2023-10-27] MEDS: PANTOPRAZOLE SODIUM 40 MG VIAL IVPUSH SCH (11:00)
[2023-10-27] MEDS: MINERAL OIL/PET HY-PHL TOPICAL OINTMENT 454 GM JAR TP SCH (11:02)
[2023-10-27] MEDS: MULTIVIT-MINERALS ORAL LIQUID PO SCH (12:53)
[2023-10-27] MEDS: ATORVASTATIN CA 40 MG TABLET (FP) GT SCH (22:55)
[2023-10-28] MEDS: NYSTATIN POWDER 100,000 UNITS/GM - 15 GM TOPICAL POWDER TP SCH ×3 (05:46→22:54)
[2023-10-28] MEDS: BANATROL PLUS POWDER PACKET PEG SCH ×3 (05:46→22:53)
[2023-10-28] MEDS: BUDESONIDE 0.25 MG/2ML INH SUSP VIAL NEB SCH ×2 (08:19→20:34)
[2023-10-28] MEDS: PANTOPRAZOLE SODIUM 40 MG VIAL IVPUSH SCH (11:17)
[2023-10-28] MEDS: NAPH,MB-DB/K PH,MBDB POWDER PACKET GT SCH ×2 (11:17→22:54)
[2023-10-28] MEDS: MINERAL OIL/PET HY-PHL TOPICAL OINTMENT 454 GM JAR TP SCH (11:18)
[2023-10-28] MEDS: MULTIVIT-MINERALS ORAL LIQUID PO SCH (11:18)
[2023-10-28] MEDS: QUEtiapine FUMARATE 25 MG TABLET PEG SCH ×2 (11:18→22:53)
[2023-10-28] MEDS: ATORVASTATIN CA 40 MG TABLET (FP) GT SCH (22:53)
[2023-10-29] MEDS: NYSTATIN POWDER 100,000 UNITS/GM - 15 GM TOPICAL POWDER TP SCH ×3 (05:58→22:03)
[2023-10-29] MEDS: BANATROL PLUS POWDER PACKET PEG SCH ×3 (05:58→22:00)
[2023-10-29] MEDS: BUDESONIDE 0.25 MG/2ML INH SUSP VIAL NEB SCH ×2 (08:02→20:15)
[2023-10-29 10:43] LABS: HEMATOCRIT 31.7 % (35.4-49); HEMOGLOBIN 10.4 GM/dL (11.7-16.9); MCH 33.4 pg (25.7-33.7); MCHC 32.8 g/dl (32.0-35.9); MEAN CELL VOLUME 101.9 fl (80-96); MEAN PLT VOLUME 8.7 fl (7.5-11.1); PLATELET COUNT 506 10^3/uL (134-434); RBC 3.11 M/mm3 (4.00-5.60); RDW 19.8 % (11.9-15.9); WHITE BLOOD COUNT 9.4 K/mm3 (4.0-10.0)
[2023-10-29 10:51] LABS: POTASSIUM 4.4 mmol/L (3.5-5.1)
[2023-10-29 10:55] LABS: ALBUMIN 1.7 g/dl (3.4-5.0); BLOOD UREA NITROGEN 8.3 mg/dL (7-18); CALCIUM 8.2 mg/dL (8.5-10.1); MAGNESIUM 1.7 mg/dL (1.8-2.4)
[2023-10-29 10:58] LABS: CREATININE 0.4 mg/dL (0.55-1.3); PHOSPHOROUS 3.5 mg/dL (2.5-4.9)
[2023-10-29 11:00] LABS: BILIRUBIN,TOTAL 0.3 mg/dL (0.2-1); TOT PROT 6.1 g/dl (6.4-8.2)
[2023-10-29] MEDS: QUEtiapine FUMARATE 25 MG TABLET PEG SCH ×2 (11:03→22:01)
[2023-10-29] MEDS: NAPH,MB-DB/K PH,MBDB POWDER PACKET GT SCH ×2 (11:03→22:00)
[2023-10-29] MEDS: MULTIVIT-MINERALS ORAL LIQUID PO SCH (11:04)
[2023-10-29] MEDS: ACETYLCYSTEINE 20% 200MG/ML 4 ML VIAL *FOR ORAL / INH USE ONLY NEB SCH ×3 (13:45→20:15)
[2023-10-29] MEDS ORDERED: ALBUTEROL SO4 0.083% IH SOL 2.5 MG/3 ML VIAL.NEB. NEB SCH (14:00)
[2023-10-29] MEDS ORDERED: MAGNESIUM SULF 50% (8.12 MEQ/2 ML-1 GM VIAL) IVPB ONE (14:03)
[2023-10-29] MEDS: ALBUTEROL SO4 0.083% IH SOL 2.5 MG/3 ML VIAL.NEB. NEB SCH ×3 (14:19→20:15)
[2023-10-29] MEDS: MINERAL OIL/PET HY-PHL TOPICAL OINTMENT 454 GM JAR TP SCH (17:54)
[2023-10-29] MEDS: ATORVASTATIN CA 40 MG TABLET (FP) GT SCH (22:01)
[2023-10-30] MEDS: BANATROL PLUS POWDER PACKET PEG SCH ×3 (05:19→23:47)
[2023-10-30] MEDS: NYSTATIN POWDER 100,000 UNITS/GM - 15 GM TOPICAL POWDER TP SCH ×3 (05:19→23:48)
[2023-10-30] MEDS: BUDESONIDE 0.25 MG/2ML INH SUSP VIAL NEB SCH ×2 (07:50→19:58)
[2023-10-30] MEDS: ALBUTEROL SO4 0.083% IH SOL 2.5 MG/3 ML VIAL.NEB. NEB SCH ×4 (08:10→19:59)
[2023-10-30] MEDS: ACETYLCYSTEINE 20% 200MG/ML 4 ML VIAL *FOR ORAL / INH USE ONLY NEB SCH ×4 (08:10→19:58)
[2023-10-30] MEDS: QUEtiapine FUMARATE 25 MG TABLET PEG SCH ×2 (10:42→23:47)
[2023-10-30] MEDS: NAPH,MB-DB/K PH,MBDB POWDER PACKET GT SCH ×2 (10:42→23:47)
[2023-10-30] MEDS: MULTIVIT-MINERALS ORAL LIQUID PO SCH (10:42)
[2023-10-30] MEDS: MINERAL OIL/PET HY-PHL TOPICAL OINTMENT 454 GM JAR TP SCH (10:43)
[2023-10-30] MEDS ORDERED: MAGNESIUM SULF 50% (8.12 MEQ/2 ML-1 GM VIAL) IVPB ONE (20:40)
[2023-10-30] MEDS: ATORVASTATIN CA 40 MG TABLET (FP) GT SCH (23:47)
[2023-10-31] MEDS ORDERED: MAGNESIUM SULF 50% (8.12 MEQ/2 ML-1 GM VIAL) IVPB ONE (00:45)
[2023-10-31] MEDS: NYSTATIN POWDER 100,000 UNITS/GM - 15 GM TOPICAL POWDER TP SCH ×3 (05:50→23:16)
[2023-10-31] MEDS: BANATROL PLUS POWDER PACKET PEG SCH ×3 (05:50→23:15)
[2023-10-31] MEDS: ALBUTEROL SO4 0.083% IH SOL 2.5 MG/3 ML VIAL.NEB. NEB SCH ×4 (07:20→20:50)
[2023-10-31] MEDS: BUDESONIDE 0.25 MG/2ML INH SUSP VIAL NEB SCH ×2 (07:20→20:50)
[2023-10-31] MEDS: ACETYLCYSTEINE 20% 200MG/ML 4 ML VIAL *FOR ORAL / INH USE ONLY NEB SCH ×4 (07:20→20:50)
[2023-10-31] MEDS: NAPH,MB-DB/K PH,MBDB POWDER PACKET GT SCH ×2 (10:26→23:15)
[2023-10-31] MEDS: AMINO ACIDS/PROTEIN HYDROLYS 30 ML LIQUID.PKT PEG SCH (10:26)
[2023-10-31] MEDS: QUEtiapine FUMARATE 25 MG TABLET PEG SCH ×2 (10:26→23:15)
[2023-10-31] MEDS: MINERAL OIL/PET HY-PHL TOPICAL OINTMENT 454 GM JAR TP SCH (10:27)
[2023-10-31 10:52] LABS: HEMATOCRIT 31.2 % (35.4-49); HEMOGLOBIN 10.3 GM/dL (11.7-16.9); MCH 33.5 pg (25.7-33.7); MCHC 33.2 g/dl (32.0-35.9); MEAN CELL VOLUME 100.8 fl (80-96); PLATELET COUNT 414 10^3/uL (134-434); RBC 3.09 M/mm3 (4.00-5.60); RDW 19.1 % (11.9-15.9); WHITE BLOOD COUNT 7.5 K/mm3 (4.0-10.0)
[2023-10-31 11:27] LABS: POTASSIUM 4.7 mmol/L (3.5-5.1)
[2023-10-31 11:35] LABS: ALBUMIN 1.8 g/dl (3.4-5.0); BLOOD UREA NITROGEN 6.5 mg/dL (7-18); CALCIUM 8.1 mg/dL (8.5-10.1)
[2023-10-31 11:38] LABS: CREATININE 0.3 mg/dL (0.55-1.3); PHOSPHOROUS 4.1 mg/dL (2.5-4.9)
[2023-10-31 11:39] LABS: BILIRUBIN,TOTAL 0.2 mg/dL (0.2-1); TOT PROT 6.2 g/dl (6.4-8.2)
[2023-10-31] MEDS: MULTIVIT-MINERALS ORAL LIQUID PO SCH (16:09)
[2023-10-31] MEDS: ATORVASTATIN CA 40 MG TABLET (FP) GT SCH (23:15)
[2023-11-01] MEDS: BANATROL PLUS POWDER PACKET PEG SCH ×2 (05:45→14:24)
[2023-11-01] MEDS: NYSTATIN POWDER 100,000 UNITS/GM - 15 GM TOPICAL POWDER TP SCH ×2 (05:45→14:24)
[2023-11-01] MEDS: ALBUTEROL SO4 0.083% IH SOL 2.5 MG/3 ML VIAL.NEB. NEB SCH ×3 (07:45→15:45)
[2023-11-01] MEDS: ACETYLCYSTEINE 20% 200MG/ML 4 ML VIAL *FOR ORAL / INH USE ONLY NEB SCH ×3 (07:50→15:45)
[2023-11-01] MEDS: BUDESONIDE 0.25 MG/2ML INH SUSP VIAL NEB SCH (07:50)
[2023-11-01 10:04] LABS: HEMATOCRIT 31.3 % (35.4-49); HEMOGLOBIN 10.3 GM/dL (11.7-16.9); PLATELET COUNT 452 10^3/uL (134-434); RBC 3.14 M/mm3 (4.00-5.60); RDW 18.8 % (11.9-15.9); WHITE BLOOD COUNT 13.2 K/mm3 (4.0-10.0)
[2023-11-01] MEDS: NAPH,MB-DB/K PH,MBDB POWDER PACKET GT SCH (10:06)
[2023-11-01] MEDS: MINERAL OIL/PET HY-PHL TOPICAL OINTMENT 454 GM JAR TP SCH (10:07)
[2023-11-01] MEDS: MULTIVIT-MINERALS ORAL LIQUID PO SCH (10:07)
[2023-11-01] MEDS: QUEtiapine FUMARATE 25 MG TABLET PEG SCH (10:08)
[2023-11-01 10:28] LABS: POTASSIUM 4.1 mmol/L (3.5-5.1)
[2023-11-01 10:38] LABS: ALBUMIN 1.9 g/dl (3.4-5.0); BLOOD UREA NITROGEN 9.8 mg/dL (7-18)
[2023-11-01 10:39] LABS: CALCIUM 8.6 mg/dL (8.5-10.1); MAGNESIUM 1.7 mg/dL (1.8-2.4)
[2023-11-01 10:41] LABS: CREATININE 0.4 mg/dL (0.55-1.3); PHOSPHOROUS 3.9 mg/dL (2.5-4.9)
[2023-11-01 10:42] LABS: BILIRUBIN,TOTAL 0.4 mg/dL (0.2-1); TOT PROT 6.5 g/dl (6.4-8.2)
[2023-11-01] MEDS: AMINO ACIDS/PROTEIN HYDROLYS 30 ML LIQUID.PKT PEG SCH (11:01)
[2023-11-01 12:18] VITALS: BP 138/55; TEMP 97.8
[2023-11-01 16:23] VITALS: PULSE 102
[2023-11-01] MEDS ORDERED: MAGNESIUM SULF 50% (8.12 MEQ/2 ML-1 GM VIAL) IVPB ONE (16:55)
== END 2023-11-01 18:00 | DRG 871 ==
LOC: JER 17:13 → JERBED 17:25 → J4W 10-06 18:08 → J7W 10-11 21:37 → JICU 10-20 10:56 → J6S 10-25 13:03
PROVIDERS: ADMIT Internal Medicine; ATTEND Internal Medicine
PROC: 30233N1 Transfusion of Nonautologous Red Blood Cells into Peripheral Vein, Percutaneous Approach (ICD-10-PCS; 2023-10-20)
PROC: 0DJ08ZZ Inspection of Upper Intestinal Tract, Via Natural or Artificial Opening Endoscopic (ICD-10-PCS; principal; 2023-10-20 15:00)
DX: A41.9 Sepsis, unspecified organism (principal); E43 Unspecified severe protein-calorie malnutrition; L89.153 Pressure ulcer of sacral region, stage 3; J18.9 Pneumonia, unspecified organism; R53.2 Functional quadriplegia; J44.0 Chronic obstructive pulmonary disease with (acute) lower respiratory infection; N39.0 Urinary tract infection, site not specified; G81.91 Hemiplegia, unspecified affecting right dominant side; Z68.1 Body mass index [BMI] 19.9 or less, adult; R64 Cachexia; D62 Acute posthemorrhagic anemia; A04.72 Enterocolitis due to Clostridium difficile, not specified as recurrent; K92.2 Gastrointestinal hemorrhage, unspecified; F03.918 Unspecified dementia, unspecified severity, with other behavioral disturbance; Z93.0 Tracheostomy status; R33.9 Retention of urine, unspecified; E78.5 Hyperlipidemia, unspecified; I10 Essential (primary) hypertension
CPT/HCPCS: 0241U-QW; 36415; 36430; 71045-TC-FY; 74018-TC-FY; 80048; 80053; 81003; 82550; 82553; 82803; 82962; 83605; 83735; 83880; 84100; 84484; 85025; 85027; 85610; 85730; 86140; 86850; 86900; 86901; 86922; 87040; 87070; 87081; 87086; 87184; 87186; 87205; 87324; 87449; 93005; 93010; 94640; 97162-GP; 99285-25; J1644; P9038; P9058

== ENCOUNTER 2023-11-09 12:21 | Inpatient (IN) | payer OTHER ==
[2023-11-09] MEDS ORDERED: SODIUM CHLORIDE IV ONE (12:59)
[2023-11-09] MEDS ORDERED: CEFTAZIDIME/AVIBACTAM 2.5 GM in DEXTROSE 5%-WATER - 250 ML IVPB ONE (13:32)
[2023-11-09 13:46] LABS: HEMATOCRIT 40.1 % (35.4-49); HEMOGLOBIN 12.6 GM/dL (11.7-16.9); MCH 31.4 pg (25.7-33.7); MCHC 31.3 g/dl (32.0-35.9); MEAN CELL VOLUME 100.3 fl (80-96); MEAN PLT VOLUME 9.6 fl (7.5-11.1); PLATELET COUNT 260 10^3/uL (134-434); WHITE BLOOD COUNT 29.2 K/mm3 (4.0-10.0)
[2023-11-09 14:14] LABS: ANISOCYTOSIS 2+; MACROCYTOSIS 2+
[2023-11-09] MEDS ORDERED: NOREPINEPHRINE BITARTRATE 16,000 MCG in SODIUM CHLORIDE 484 ML IV SCH ×2 (15:00→18:45)
[2023-11-09 15:02] LABS: HEMATOCRIT 34.3 % (35.4-49); HEMOGLOBIN 10.6 GM/dL (11.7-16.9); MCH 30.9 pg (25.7-33.7); MCHC 30.8 g/dl (32.0-35.9); MEAN CELL VOLUME 100.4 fl (80-96); MEAN PLT VOLUME 8.3 fl (7.5-11.1); PLATELET COUNT 447 10^3/uL (134-434); RBC 3.41 M/mm3 (4.00-5.60); RDW 18.7 % (11.9-15.9); WHITE BLOOD COUNT 26.4 K/mm3 (4.0-10.0)
[2023-11-09 15:07] LABS: INR 1.3 (0.83-1.09)
[2023-11-09 15:10] LABS: ACTIVATED PTT 29.6 SECONDS (25.2-36.5)
[2023-11-09] MEDS ORDERED: NOREPINEPHRINE BITARTRATE 4 MG/4 ML ML IV ONE (15:14)
[2023-11-09 15:16] LABS: CHLORIDE 107 mmol/L (98-107); POTASSIUM 4.9 mmol/L (3.5-5.1); SODIUM 137 mmol/L (136-145)
[2023-11-09 15:18] LABS: ANION GAP 7 mmol/L (4-13); CO2 23 mmol/L (21-32)
[2023-11-09 15:21] LABS: CREATININE 1.1 mg/dL (0.55-1.3); SGOT/AST 25 U/L (15-37); SGPT/ALT 28 U/L (13-61)
[2023-11-09 15:23] LABS: BILIRUBIN,TOTAL 0.2 mg/dL (0.2-1); TOT PROT 4.8 g/dl (6.4-8.2)
[2023-11-09 15:25] LABS: ALK PHOS 86 U/L (45-117)
[2023-11-09 15:27] LABS: ANISOCYTOSIS 2+; MACROCYTOSIS 2+
[2023-11-09] MEDS ORDERED: MIDAZOLAM HCL 2 MG/2 ML SINGLE DOSE VIAL IVPUSH ONE (15:29)
[2023-11-09] MEDS ORDERED: MIDAZOLAM HCL 2 MG/2 ML SINGLE DOSE VIAL ONE (15:33)
[2023-11-09 16:24] LABS: EPI CELLS 13 /uL (0-25.1); HYALINE CASTS 30 /uL (0-3.1); URINE APPEARANCE TURBID; URINE BACTERIA 80 /uL (0-1359); URINE BILIRUBIN 1+ (NEGATIVE); URINE COLOR DK YELLOW; URINE GLUCOSE (UA) NEGATIVE (NEGATIVE); URINE KETONE TRACE (NEGATIVE); URINE LEUK ESTERASE 2+ (NEGATIVE); URINE NITRITE NEGATIVE (NEGATIVE); URINE PROTEIN 2+ (NEGATIVE); URINE WBC 2548 /uL (0-25.8)
[2023-11-09] MEDS ORDERED: methylPREDNISolone NA SUCC 40 MG/1 ML VIAL IVPUSH SCH (16:30)
[2023-11-09 16:31] LABS: GLUCOSE,RANDOM 116 mg/dL (74-106)
[2023-11-09] MEDS: SODIUM CHLORIDE 1,000 ML IV SCH (16:35)
[2023-11-09 16:50] LABS: URINE RBC 208.5 /uL (0-23.9); YEAST NONE SEEN (NEGATIVE)
[2023-11-09 16:52] LABS: ALBUMIN 1.1 g/dl (3.4-5.0); BLOOD UREA NITROGEN 49.8 mg/dL (7-18); CALCIUM 6.9 mg/dL (8.5-10.1)
[2023-11-09] MEDS ORDERED: NOREPINEPHRINE 0.9 % NACL 8 MG/250 ML BAG IVPB SCH (17:35)
[2023-11-09] MEDS ORDERED: ALPRAZolam 0.25 MG TABLET GT PRN (18:06)
[2023-11-09] MEDS ORDERED: ACETAMINOPHEN 650 MG/20.3 ML ORAL SOLUTION (CUPS) PEG PRN (18:06)
[2023-11-09] MEDS: ALBUTEROL SO4 2.5/IPRATROPIUM 0.5 INH SOL 3 ML VIAL.NEB. NEB SCH (19:38)
[2023-11-09] MEDS ORDERED: LACTATED RINGERS SOLUTION 1,000 ML/1,000 ML INFUS.BAG IV STA (21:14)
[2023-11-09] MEDS: NOREPINEPHRINE BITARTRATE/D5W 8 MG/250 ML BAG IVPB SCH (21:34)
[2023-11-09] MEDS ORDERED: CALCIUM GLUCONATE 10% - 1,000 MG/10 ML VIAL IVPB ONE (21:45)
[2023-11-09] MEDS: MUPIROCIN 2% TOPICAL OINTMENT FOR DECOLONIZATION NS SCH (21:50)
[2023-11-09] MEDS: SENNOSIDES 8.8 MG/5 ML BULK BOTTLE GT SCH ×2 (21:52→22:34)
[2023-11-09] MEDS: ASCORBIC ACID 500 MG/5 ML UNIT DOSE CUP GT SCH (21:53)
[2023-11-09] MEDS: ZINC OXIDE 20% TOPICAL OINTMENT 30 GM TUBE TP SCH (21:53)
[2023-11-09] MEDS ORDERED: MUPIROCIN 2% TOPICAL OINTMENT FOR DECOLONIZATION NS SCH (22:00)
[2023-11-09] MEDS ORDERED: CHLORHEXIDINE GLUCONATE 4% CLEANSER FOR DECOLONIZATION TP SCH ×2 (22:00)
[2023-11-09] MEDS ORDERED: QUEtiapine FUMARATE 25 MG TABLET PEG SCH (22:00)
[2023-11-09] MEDS ORDERED: ATORVASTATIN CA 40 MG TABLET (FP) GT SCH (22:00)
[2023-11-09] MEDS ORDERED: HEPARIN NA (PORCINE) 5,000 UNITS/ML 1ML VIAL SQ SCH (22:00)
[2023-11-09 22:14] LABS: LACTIC ACID 3.4 mmol/L (0.4-2.0)
[2023-11-09] MEDS: VASopressin 40 UNITS/100 ML BAG IV SCH (22:24)
[2023-11-09] MEDS: HYDROCORTISONE SOD SUCCINATE 100 MG/2 ML VIAL IVPB SCH (22:25)
[2023-11-10] MEDS: CEFTAZIDIME/AVIBACTAM 2.5 GM in DEXTROSE 5%-WATER - 250 ML IVPB SCH ×2 (01:15→09:28)
[2023-11-10] MEDS: HYDROCORTISONE SOD SUCCINATE 100 MG/2 ML VIAL IVPB SCH ×2 (03:25→09:27)
[2023-11-10] MEDS: ZINC OXIDE 20% TOPICAL OINTMENT 30 GM TUBE TP SCH ×2 (05:00→13:24)
[2023-11-10] MEDS ORDERED: LACTATED RINGERS SOLUTION 1,000 ML/1,000 ML INFUS.BAG IV STA (05:29)
[2023-11-10] MEDS: EPINEPHrine 1:1,000 1,000 MCG in DEXTROSE 5%-WATER - 249 ML IVPB SCH ×3 (05:49→11:44)
[2023-11-10] MEDS ORDERED: EPINEPHrine/PF 1 MG/1 ML (1:1,000) AMPULE ONE (07:49)
[2023-11-10 08:02] LABS: CHLORIDE 103 mmol/L (98-107); SODIUM 132 mmol/L (136-145)
[2023-11-10 08:19] LABS: CALCIUM 7.6 mg/dL (8.5-10.1); CO2 17 mmol/L (21-32)
[2023-11-10 08:20] LABS: ALBUMIN 0.9 g/dl (3.4-5.0); BLOOD UREA NITROGEN 57.8 mg/dL (7-18); MAGNESIUM 3.8 mg/dL (1.8-2.4)
[2023-11-10 08:22] LABS: CREATININE 2.1 mg/dL (0.55-1.3); SGPT/ALT 314 U/L (13-61)
[2023-11-10 08:23] LABS: SGOT/AST 732 U/L (15-37); TOT PROT 4.5 g/dl (6.4-8.2)
[2023-11-10 08:24] LABS: BILIRUBIN,TOTAL 0.3 mg/dL (0.2-1)
[2023-11-10] MEDS: ALBUTEROL SO4 2.5/IPRATROPIUM 0.5 INH SOL 3 ML VIAL.NEB. NEB SCH ×2 (08:28→12:06)
[2023-11-10 08:56] LABS: ALK PHOS 121 U/L (45-117); ANION GAP 12 mmol/L (4-13); GLUCOSE,RANDOM 23 mg/dL (74-106); PHOSPHOROUS 10.8 mg/dL (2.5-4.9); POTASSIUM 8.2 mmol/L (3.5-5.1)
[2023-11-10] MEDS ORDERED: DEXTROSE 50%-WATER 25 GM/50 ML DISP.SYRIN ONE (08:59)
[2023-11-10] MEDS ORDERED: DEXTROSE 50%-WATER - 25 GM/50 ML VIAL IVPUSH ONE (09:00)
[2023-11-10] MEDS ORDERED: CALCIUM CHLORIDE 10% 1 GM/10 ML *VIAL IVPUSH ONE (09:02)
[2023-11-10] MEDS ORDERED: SODIUM BICARBONATE 8.4% 50 MEQ/50 ML DISP.SYRIN IVPUSH ONE (09:04)
[2023-11-10] MEDS ORDERED: CALCIUM CHLORIDE 1 GM/10 ML *DISP.SYRIN ONE (09:07)
[2023-11-10] MEDS ORDERED: CALCIUM CHLORIDE 1 GM/10 ML *DISP.SYRIN IVPUSH ONE (09:15)
[2023-11-10] MEDS: MUPIROCIN 2% TOPICAL OINTMENT FOR DECOLONIZATION NS SCH (09:29)
[2023-11-10] MEDS: ASCORBIC ACID 500 MG/5 ML UNIT DOSE CUP GT SCH (09:30)
[2023-11-10] MEDS: SODIUM CHLORIDE 1,000 ML IV SCH (09:30)
[2023-11-10] MEDS: NOREPINEPHRINE BITARTRATE/D5W 8 MG/250 ML BAG IVPB SCH (09:30)
[2023-11-10 09:54] LABS: HEMATOCRIT 41.5 % (35.4-49); HEMOGLOBIN 11.7 GM/dL (11.7-16.9); MCH 31.4 pg (25.7-33.7); MCHC 28.1 g/dl (32.0-35.9); MEAN CELL VOLUME 111.6 fl (80-96); MEAN PLT VOLUME 10.3 fl (7.5-11.1); PLATELET COUNT 167 10^3/uL (134-434); RBC 3.72 M/mm3 (4.00-5.60); RDW 20.6 % (11.9-15.9); WHITE BLOOD COUNT 55.9 K/mm3 (4.0-10.0)
[2023-11-10] MEDS ORDERED: POTASSIUM CHLORIDE ORAL LIQUID 20 MEQ/15 ML GT SCH (10:00)
[2023-11-10] MEDS ORDERED: FOLIC ACID 1 MG TABLET (FP) GT SCH (10:00)
[2023-11-10] MEDS ORDERED: ZINC SULFATE 220 MG CAPSULE (FP) GT SCH (10:00)
[2023-11-10] MEDS ORDERED: FAMOTIDINE 20 MG/2.5 ML ORAL LIQUID GT SCH (10:00)
[2023-11-10] MEDS ORDERED: PANTOPRAZOLE SODIUM 40 MG VIAL IVPUSH SCH (10:00)
[2023-11-10] MEDS ORDERED: CYANOCOBALAMIN 1,000 MCG TABLET (FP) GT SCH (10:00)
[2023-11-10] MEDS ORDERED: ASPIRIN 81 MG CHEWABLE TABLETS GT SCH (10:00)
[2023-11-10] MEDS ORDERED: POLYETHYLENE GLYCOL (HEALTHYLAX) 3350 17 GM PACKET GT SCH (10:00)
[2023-11-10] MEDS ORDERED: THIAMINE HCL 100 MG TABLET (FP) NGT SCH (10:00)
[2023-11-10] MEDS: VASopressin 40 UNITS/100 ML BAG IV SCH (11:47)
[2023-11-10 12:08] VITALS: TEMP 97.1
[2023-11-10] MEDS ORDERED: VANCOMYCIN 500 MG in DEXTROSE 5%-WATER 100 ML IVPB ONE (12:12)
[2023-11-10] MEDS ORDERED: NOREPINEPHRINE BITARTRATE 4 MG/4 ML ML IV ONE (12:54)
[2023-11-10 13:57] VITALS: BMI 14.8
[2023-11-10 15:37] VITALS: BP 61/50; PULSE 67; RESP 34
[2023-11-10] MEDS ORDERED: CEFTAZIDIME/AVIBACTAM 0.94 GM in DEXTROSE 5%-WATER - 100 ML IVPB SCH (21:00)
[2023-11-12] MEDS ORDERED: MAGNESIUM HYDROX 2400MG/30ML ORAL SUSPENSION 30 ML CUP PEG SCH (09:00)
== END 2023-11-10 15:00 | disposition expired | DRG 871 ==
LOC: JER 12:21 → JERBED 15:47 → JICU 18:52
PROVIDERS: ADMIT Internal Medicine Pulmonary Disease; ATTEND Internal Medicine Pulmonary Disease
PROC: 5A1945Z Respiratory Ventilation, 24-96 Consecutive Hours (ICD-10-PCS; principal; 2023-11-09)
PROC: 02HV33Z Insertion of Infusion Device into Superior Vena Cava, Percutaneous Approach (ICD-10-PCS; 2023-11-09)
DX: A41.9 Sepsis, unspecified organism (principal); E43 Unspecified severe protein-calorie malnutrition; J96.21 Acute and chronic respiratory failure with hypoxia; R65.21 Severe sepsis with septic shock; J18.9 Pneumonia, unspecified organism; J44.0 Chronic obstructive pulmonary disease with (acute) lower respiratory infection; N17.9 Acute kidney failure, unspecified; N39.0 Urinary tract infection, site not specified; Z68.1 Body mass index [BMI] 19.9 or less, adult; E87.0 Hyperosmolality and hypernatremia; R64 Cachexia; I12.9 Hypertensive chronic kidney disease with stage 1 through stage 4 chronic kidney disease, or unspecified chronic kidney disease; J44.9 Chronic obstructive pulmonary disease, unspecified; N18.9 Chronic kidney disease, unspecified; Z93.0 Tracheostomy status; Z93.1 Gastrostomy status; R62.7 Adult failure to thrive; R19.7 Diarrhea, unspecified; E78.5 Hyperlipidemia, unspecified
CPT/HCPCS: 0241U-QW; 36415; 71045-TC-FY; 80053; 81003; 82962; 83605; 83735; 84100; 84484; 85025; 85027; 85610; 85730; 86850; 86900; 86901; 87040; 87086; 93005; 93010; 94002; 94640; 99291; J1644; J3490